=== PATIENT | male | born 1970 ===

== ENCOUNTER 2017-12-18 20:13 | Observation (INO) | payer OTHER ==
[2017-12-18 21:00] VITALS: BMI 35.5
[2017-12-18] MEDS ORDERED: Sodium Chloride 0.9% 1,000 ML IV STA (21:00)
[2017-12-18 21:39] LABS: BASO # 0.03 K/mm3 (0.0-2.0); BASO % 0.4 % (0.0-3.0); EOS # 0.1 (0.0-0.7); EOS % 1.3 % (1.5-5.0); GRAN # 5.82 (1.4-6.5); GRAN % 72.6 % (50.0-68.0); HEMOGLOBIN 14.8 g/dL (14.0-18.0); LYMPH # 1.6 (1.2-3.4); LYMPH % 19.8 % (22.0-35.0); MEAN CELL VOLUME 83.8 fl (80.0-105.0); MEAN CORPUSCULAR HEMOGLOBIN 30.8 pg (25.0-35.0); MEAN CORPUSCULAR HGB CONC 36.7 g/dl (31.0-37.0); MONO # 0.5 (0.1-0.6); MONO % 5.9 % (1.0-6.0); RBC 4.81 10^6/uL (3.5-6.1); RED CELL DISTRIBUTION WIDTH 12.9 % (11.5-14.5)
--- NOTE | 2017-12-18 21:42 | ED PDOC ---
Arrival/HPI - General Chief Complaint: Eye Problem Time Seen by Provider: 12/18/17 20:59 Historian: Patient - History of Present Illness Narrative History of Present Illness (Text): 12/18/17 21:00 47 year old male w/ PMH of HTN and bipolar d/o, recently diagnosed with diabetes 6 months ago and placed on insulin/oral glycemic-control medication, presents to the Emergency department complaining of vision changes. Patient states he discontinued all his diabetes medications because he "got tired of it." Patient has not been checking his insulin or following an appropriate diet. Patient states over the past few days he developed blurry/cloudy vision to both eyes. He adds that he just saw an services tech 1 month ago at [facility] and was given new eyeglasses and despite wearing his glasses his vision is blurry to both eyes. Patient also reports polyuria and polydipsia. Patient states he bought orange juice on sale and has been drinking a lot of it for the past 3 weeks. Patient denies any fever, chills, chest pain, shortness of breath, nausea, vomiting, diarrhea, back pain, neck pain, headache, dizziness, or any other complaints. PMD Veralondra ([place], [place]) Symptom Onset: Gradual Symptom Course: Unchanged Activities at Onset: Light Context: Home Past Medical History - Provider Review Nursing Documentation Reviewed: Yes - Infectious Disease Hx of Infectious Diseases: None - Cardiac Hx Hypertension: Yes - Endocrine/Metabolic Hx Diabetes Mellitus Type 2: Yes - Psychiatric Hx Bipolar Disorder: Yes Hx Depression: No Hx Emotional Abuse: No Hx Physical Abuse: No Hx Substance Use: No - Suicidal Assessment Feels Threatened In Home Enviroment: No Family/Social History - Physician Review Nursing Documentation Reviewed: Yes Family/Social History: Unknown Family HX Smoking Status: Never Smoked Hx Alcohol Use: No Hx Substance Use: No Hx Substance Use Treatment: No Allergies/Home Meds Allergies/Adverse Reactions: Allergies No Known Allergies Allergy (Verified 08/08/11 08:49) Home Medications: Home Meds Medication Instructions Recorded Confirmed risperiDONE [RisperDAL] 3 mg PO DAILY 08/08/11 08/08/11 Review of Systems - Physician Review All systems were reviewed & negative as marked: Yes - Review of Systems Eyes: Vision Changes Neurological: absent: Headache, Dizziness Physical Exam Vital Signs Reviewed: Yes Vital Signs Temp Pulse Resp BP Pulse Ox 12/18/17 21:06 99.0 F 121 H 18 108/67 95 Temperature: Afebrile Blood Pressure: Normal Pulse: Regular Respiratory Rate: Normal Appearance: Positive for: Well-Appearing, Non-Toxic, Comfortable Pain Distress: None Mental Status: Positive for: Alert and Oriented X 3 Finger Stick Blood Glucose: 500 - Systems Exam Head: Present: Atraumatic, Normocephalic Pupils: Present: PERRL Extroacular Muscles: Present: EOMI Conjunctiva: Present: Normal Mouth: Present: Moist Mucous Membranes Neck: Present: Normal Range of Motion Respiratory/Chest: Present: Clear to Auscultation, Good Air Exchange. No: Respiratory Distress, Accessory Muscle Use Cardiovascular: Present: Regular Rate and Rhythm, Normal S1, S2. No: Murmurs Abdomen: No: Tenderness, Distention, Peritoneal Signs Back: Present: Normal Inspection Upper Extremity: Present: Normal Inspection. No: Cyanosis, Edema Lower Extremity: Present: Normal Inspection. No: Edema Neurological: Present: GCS=15, CN II-XII Intact, Speech Normal Skin: Present: Warm, Dry, Normal Color. No: Rashes Psychiatric: Present: Alert, Oriented x 3, Normal Insight, Normal Concentration Medical Decision Making ED Course and Treatment: 12/18/17 21:00 Impression: 47 year old male complaining of vision changes. Plan: -- Labs -- Urinalysis, urine culture -- IV fluids NS bolus 1 L -- Visual Acuity -- Reassess and disposition Progress Notes: FS : > 500 Visual acuity : R eye 20/200 L eye 20/200 (performed with glasses) Labs : wbc 8, hgb 14, Na, 131, Cl 86, CO2 26, Anion gap 19, glucose 628, UA: >1000/ketones +15, VGG: ph 7.35/lactate 1.4. Patient given 10 units IV reg insulin and 8 units SC reg insulin. Repeat FS after IV insulin given was 500. On re-evaluation, patient reports no other symptoms at this time. On exam, patient remains AAOx3, in no acute distress. Diagnostic results d/w the patient in great detail. Diagnosis of hyperglycemia and uncontrolled DM d/w the patient. Based on history, exam and diagnostic results, plan will be for observation. Case d/w medical psychotherapist and Dr. Ramos was notified by medical psychotherapist of observation under the hospitalist service. Patient states he fully agrees with and understands further plan of care. I have given the patient opportunity to ask any additional questions. - Medication Orders Current Medication Orders: Sodium Chloride (Sodium Chloride 0.9%) 1,000 mls @ 1,000 mls/hr IV .Q1H STA Stop: 12/18/17 21:59 Last Admin: 12/18/17 21:23 Dose: 1,000 mls/hr eMAR Start Stop Document 12/18/17 21:23 CNR (Rec: 12/18/17 21:23 CNR [id number]) Intravenous Solution Start Date 12/18/17 Start Time 21:23 End Date 12/18/17 End time 22:23 Total Infusion Time 60 - PA / MARKETING AND PUBLIC RELATIONS MANAGER / Resident Statement MD/DO has reviewed & agrees with the documentation as recorded. - Scribe Statement The provider has reviewed the documentation as recorded by the Alivia Mayer Provider Scribe Attestation: All medical record entries made by the Scribe were at my direction and personally dictated by me. I have reviewed the chart and agree that the record accurately reflects my personal performance of the history, physical exam, medical decision making, and the department course for this patient. I have also personally directed, reviewed, and agree with the discharge instructions and disposition. Disposition/Present on Arrival - Present on Arrival Any Indicators Present on Arrival: Yes History of DVT/PE: No History of Uncontrolled Diabetes: Yes Urinary Catheter: No History of Decub. Ulcer: No History Surgical Site Infection Following: None - Disposition Have Diagnosis and Disposition been Completed?: Yes Diagnosis: Uncontrolled diabetes mellitus, Hyperglycemia Disposition: HOSPITALIZED Disposition Time: 23:15 Patient Plan: Observation Patient Problems: Current Active Problems Problem Status Onset Uncontrolled diabetes mellitus Acute Hyperglycemia Acute Condition: STABLE
[2017-12-18 21:59] LABS: ALB/GLOB RATIO 1.3 (1.1-1.8); ALBUMIN 4.5 g/dL (3.0-4.8); ALT/SGPT 39 U/L (7-56); AST/SGOT 64 U/L (17-59); BLOOD UREA NITROGEN 17 mg/dL (7-21); CALCIUM 9.1 mg/dL (8.4-10.5); GFR NON-AFRICAN AMERICAN 59
[2017-12-18] MEDS ORDERED: Insulin Regular 1 UNITS/0.01 ML ML IV STA (22:16)
[2017-12-18] MEDS ORDERED: Insulin Regular 1 UNITS/0.01 ML ML SC STA (22:18)
[2017-12-18 22:46] LABS: URINE BILIRUBIN NEGATIVE (NEGATIVE); URINE BLOOD NEGATIVE (NEGATIVE); URINE GLUCOSE (UA) >=1000 mg/dL (NEGATIVE); URINE LEUKOCYTE ESTERASE NEGATIVE Leu/uL (NEGATIVE); URINE PROTEIN NEGATIVE mg/dL (<30 mg/dL); URINE UROBILINOGEN 0.2 E.U./dL (<1 E.U./dL)
[2017-12-18 22:50] LABS: URINE COLOR LIGHT YELLOW (YELLOW)
[2017-12-18 22:51] LABS: URINE APPEARANCE CLEAR (CLEAR)
[2017-12-18 22:52] LABS: VENOUS BLOOD GAS BASE EXCESS 2.9 mmol/L (0.0-2.0); VENOUS BLOOD GAS PO2 32 mm/Hg (30-55); VENOUS BLOOD PH 7.35 (7.32-7.43)
[2017-12-19] MEDS ORDERED: Potassium Chloride 20 mEq ER Tab PO STA (00:10)
[2017-12-19] MEDS ORDERED: Dextrose 50% SYRINGE Inj (50 ml) IV PRN (00:10)
[2017-12-19] MEDS ORDERED: Insulin Detemir 100 units/ml Vial (Levemir) SC SCH ×2 (00:15→22:00)
[2017-12-19] MEDS ORDERED: Insulin Lispro (humaLOG) MEDIUM Coverage SC SCH (00:15)
--- NOTE | 2017-12-19 00:15 | CP.PCM.HP ---
Addendum entered and electronically signed by Anuj Singh DO 12/19/17 06:18: Corrected Assessment: 47M w/ a PMH of Bipolar, HTN, Recently DM HTN 6mo prior to admission, presented to [facility] ED on 12/19 w/ CC of blurry vision x3 days; patient found to be hyperglycemic upon ED evaluation; will be worked up as DKA Original Note: History of Present Illness - History of Present Illness History of Present Illness: Anuj Singh DO PGY1 - Internal Medicine Picker/Puller - Medicine H&P CC: Blurry Vision 47M w/ a PMH of Bipolar, HTN, Recently DM HTN 6mo prior to admission, presented to [facility] ED on 12/19 w/ CC of blurry vision x3 days Patient reports gradual worsening of blury vision in both eyes; denies any loss of visual field, color change, light sensitivity, floaters/ spotters Reports that he stopped taking his DM Rx (insulin and oral agent) because he was "frustrated with taking it". He says he was recently diagnosed 6mo by his PMD (Mathew Randolph) and was trying multiple different injectable Rx. He describes his most current regimen as a once nightly injection and a oral agent; unsure of names + doses. He denies any issue w/ purchasing or accessibility. He did not report how long he has been off of his anti hyperglycemic rx; however did report associated polydypsia, polyuria. He does report he is compliant w/ his other rx. Upon ROS denies suicidal ideation, homicidal ideation, auditory/visual hallucination, manic episodes or depressed mood. Subsequently denies abd pain, n/v/d/c, fevers/chills, dysuria. Remainder of 12 system ROS is negative at this time. PMD: Melia Randolph [place]- last appt 6mo ago PMH: As above PSH: BL Feet orthopedic surgery 03/29 accident - 1991 Allergies: NKDA Social: Denies Home Rx: Ripserdal 3mg QD; Losartan - dose unknown Present on Admission - Present on Admission Any Indicators Present on Admission: No Review of Systems - Review of Systems All systems: reviewed and no additional remarkable complaints except Review of Systems: As per HPI Past Patient History - Infectious Disease Hx of Infectious Diseases: None - Past Social History Smoking Status: Never Smoked - CARDIAC Hx Hypertension: Yes - ENDOCRINE/METABOLIC Hx Diabetes Mellitus Type 2: Yes - PSYCHIATRIC Hx Bipolar Disorder: Yes Hx Depression: No Hx Emotional Abuse: No Hx Physical Abuse: No Hx Substance Use: No Meds Allergies/Adverse Reactions: Allergies Allergy/AdvReac Type Severity Reaction Status Date / Time No Known Allergies Allergy Verified 08/08/11 08:49 Physical Exam - Constitutional Appears: Well, Non-toxic, No Acute Distress - Head Exam Head Exam: ATRAUMATIC, NORMAL INSPECTION, NORMOCEPHALIC - Eye Exam Eye Exam: EOMI, Normal appearance, PERRL. absent: Scleral icterus Additional comments: Visual kent intact EOMI intact - ENT Exam ENT Exam: Mucous Membranes Moist, Normal Exam - Respiratory Exam Respiratory Exam: Clear to Auscultation Bilateral, NORMAL BREATHING PATTERN. absent: Rales, Rhonchi, Wheezes - Cardiovascular Exam Cardiovascular Exam: RRR, +S1, +S2 - GI/Abdominal Exam GI & Abdominal Exam: Normal Bowel Sounds, Soft. absent: Tenderness - Back Exam Back exam: absent: CVA tenderness (L), CVA tenderness (R) - Neurological Exam Neurological exam: CN II-XII Intact, Oriented x3 - Psychiatric Exam Psychiatric exam: Normal Affect, Normal Mood Additional comments: Negative for: depressed, anxious, suicidal - Skin Skin Exam: Dry, Intact, Warm Results - Vital Signs Recent Vital Signs: Last Vital Signs Temp 99.0 F 12/18/17 21:06 Pulse 121 H 12/18/17 21:06 Resp 18 12/18/17 21:06 BP 108/67 12/18/17 21:06 Pulse Ox 95 12/18/17 21:06 - Labs Result Diagrams: 12/18/17 21:20 12/19/17 04:00 Labs: Laboratory Results - last 24 hr 12/18/17 12/18/17 12/18/17 21:18 21:20 21:20 WBC 8.0 RBC 4.81 Hgb 14.8 Hct 40.3 L MCV 83.8 MCH 30.8 MCHC 36.7 RDW 12.9 Plt Count 233 MPV 12.0 H Gran % 72.6 H Lymph % (Auto) 19.8 L Wright % (Auto) 5.9 Eos % (Auto) 1.3 L Baso % (Auto) 0.4 Gran # 5.82 Lymph # (Auto) 1.6 Wright # (Auto) 0.5 Eos # (Auto) 0.1 Baso # (Auto) 0.03 pO2 VBG pH VBG pCO2 VBG HCO3 VBG Total CO2 VBG O2 Sat (Calc) VBG Base Excess VBG Potassium Glucose Lactate FiO2 Sodium 131 L Potassium 3.7 Chloride 86 L Carbon Dioxide 26 Anion Gap 22 H BUN 17 Creatinine 1.3 Est GFR ( Amer) > 60 Est GFR (Non-Af Amer) 59 POC Glucose (mg/dL) > 500 H* Random Glucose 628 H* Calcium 9.1 Magnesium 1.8 Total Bilirubin 1.0 AST 64 H ALT 39 Alkaline Phosphatase 90 Total Protein 8.0 Albumin 4.5 Globulin 3.4 Albumin/Globulin Ratio 1.3 Venous Blood Potassium Urine Color Urine Appearance Urine pH Ur Specific [place] Urine Protein Urine Glucose (UA) Urine Ketones Urine Blood Urine Nitrate Urine Bilirubin Urine Urobilinogen Ur Leukocyte Esterase 12/18/17 12/18/17 22:36 22:45 WBC RBC Hgb Hct MCV MCH MCHC RDW Plt Count MPV Gran % Lymph % (Auto) Wright % (Auto) Eos % (Auto) Baso % (Auto) Gran # Lymph # (Auto) Wright # (Auto) Eos # (Auto) Baso # (Auto) pO2 32 VBG pH 7.35 VBG pCO2 54.0 VBG HCO3 29.8 H VBG Total CO2 31.5 H VBG O2 Sat (Calc) 61.4 VBG Base Excess 2.9 H VBG Potassium 3.4 L Glucose 565 H* Lactate 1.4 FiO2 21.0 Sodium 135.0 Potassium Chloride 93.0 L Carbon Dioxide Anion Gap BUN Creatinine Est GFR ( Amer) Est GFR (Non-Af Amer) POC Glucose (mg/dL) Random Glucose Calcium Magnesium Total Bilirubin AST ALT Alkaline Phosphatase Total Protein Albumin Globulin Albumin/Globulin Ratio Venous Blood Potassium 3.4 L Urine Color Light yellow Urine Appearance Clear Urine pH 6.0 Ur Specific [place] <= 1.005 Urine Protein Negative Urine Glucose (UA) >=1000 Urine Ketones 15 H Urine Blood Negative Urine Nitrate Negative Urine Bilirubin Negative Urine Urobilinogen 0.2 Ur Leukocyte Esterase Negative Assessment & Plan - Assessment and Plan (Free Text) Assessment: 47M w/ a PMH of Bipolar, HTN, Recently DM HTN 6mo prior to admission, presented to [facility] ED on 12/19 w/ CC of blurry vision x3 days; patient found to be hyperglycemic upon ED evaluation w/o any signs of HHS or PLAN DKA 2/2 Non compliance: Non acidotic; Glucose 628; AG 19 AG post 18u insulin bolus and IVF: 18 UA: Ketouria + Glucosuria Start insulin drip per DKA Algortihm CLD; IVF NS 100cc/hr Accucheck Q1H BMP Q4H Hypokalemia Repleted w/ 60meq PO Continue monitoring; Replete as necesary Blurry vision 2/2 hyperglycemia -Will correct hyperglycemia as above -Ophthalmology consulted, appreciate reccs Hx Hypertension -C/w Home Losartan 25QD Hx Bipolar Disorder -C/w Risperdal at this time -Risperdal has known hyperglycemic effect; will consult psych for further reccs -Psych consulted, appreciate reccs PPX DVT:SCD GI: Famotidine 20 PO DISPO: ICU for DKA mgmt w/ insulin drip Upon discharge pt w/ f/u w/ PMD Mathew Wellington Patient was seen, evaluated, and discussed w/ attending Dr. Carlos Singh DO PGY1 Internal Medicine Picker/Puller [facility] Internal Medicine Residency - Date & Time Date: 12/19/17 Time: 05:45
[2017-12-19] MEDS: Sodium Chloride 0.9% 1,000 ML IV SCH ×2 (00:41→06:40)
[2017-12-19] MEDS ORDERED: Insulin Regular 100 UNITS in Sodium Chloride 0.9% 99 ML IV PRN (04:39)
[2017-12-19 04:40] LABS: FREE T4 1.39 ng/dL (0.78-2.19)
[2017-12-19 04:50] LABS: ALB/GLOB RATIO 1.4 (1.1-1.8); ALBUMIN 4.2 g/dL (3.0-4.8); ALT/SGPT 32 U/L (7-56); AST/SGOT 50 U/L (17-59); BLOOD UREA NITROGEN 18 mg/dL (7-21); GFR NON-AFRICAN AMERICAN > 60; HDL CHOLESTEROL 22 mg/dL (29-60); LDL CHOLESTEROL < 30 mg/dL (0-129)
[2017-12-19] MEDS ORDERED: Potassium Chloride 20 mEq ER Tab PO ONE (05:02)
[2017-12-19 05:58] LABS: BASO # 0.05 K/mm3 (0.0-2.0); BASO % 0.6 % (0.0-3.0); EOS # 0.2 (0.0-0.7); EOS % 1.9 % (1.5-5.0); GRAN # 5.1 (1.4-6.5); GRAN % 57.8 % (50.0-68.0); HEMOGLOBIN 13.8 g/dL (14.0-18.0); LYMPH # 2.9 (1.2-3.4); LYMPH % 32.7 % (22.0-35.0); MEAN CELL VOLUME 83.3 fl (80.0-105.0); MEAN CORPUSCULAR HEMOGLOBIN 30.7 pg (25.0-35.0); MEAN CORPUSCULAR HGB CONC 36.9 g/dl (31.0-37.0); MEAN PLATELET VOLUME 11.4 fl (7.0-11.0); MONO # 0.6 (0.1-0.6); RBC 4.49 10^6/uL (3.5-6.1); WHITE BLOOD COUNT 8.8 10^3/ul (4.5-11.0)
--- NOTE | 2017-12-19 06:13 | CP.PCM.CON ---
History of Present Illness - History of Present Illness History of Present Illness: Anuj Singh DO PGy1 - Internal Medicine Stockroom Clerk - ICU Consult Note CC: Blurry Vision 47M w/ a PMH of Bipolar, HTN, Recently DM HTN 6mo prior to admission, presented to [facility] ED on 12/19 w/ CC of blurry vision x3 days Patient reports gradual worsening of blury vision in both eyes; denies any loss of visual field, color change, light sensitivity, floaters/ spotters Reports that he stopped taking his DM Rx (insulin and oral agent) because he was "frustrated with taking it". He says he was recently diagnosed 6mo by his PMD (Mathew Randolph) and was trying multiple different injectable Rx. He describes his most current regimen as a once nightly injection and a oral agent; unsure of names + doses. He denies any issue w/ purchasing or accessibility. He did not report how long he has been off of his anti hyperglycemic rx; however did report associated polydypsia, polyuria. He does report he is compliant w/ his other rx. Upon ROS denies suicidal ideation, homicidal ideation, auditory/visual hallucination, manic episodes or depressed mood. Subsequently denies abd pain, n/v/d/c, fevers/chills, dysuria. Remainder of 12 system ROS is negative at this time. PMD: Melia Randolph [place]- last appt 6mo ago PMH: As above PSH: Feet orthopedic surgery 03/29 accident - 1991 Allergies: NKDA Social: Denies Home Rx: Ripserdal 3mg QD; Losartan - dose unknown Review of Systems - Review of Systems All systems: reviewed and no additional remarkable complaints except Review of Systems: PER HPI Past Patient History - Infectious Disease Hx of Infectious Diseases: None - Past Social History Smoking Status: Never Smoked - CARDIAC Hx Hypertension: Yes - PULMONARY Hx Respiratory Disorders: No - NEUROLOGICAL Hx Neurological Disorder: No - HEENT Hx HEENT Problems: No - RENAL Hx Chronic Kidney Disease: No - ENDOCRINE/METABOLIC Hx Diabetes Mellitus Type 2: Yes - HEMATOLOGICAL/ONCOLOGICAL Hx Blood Disorders: No - INTEGUMENTARY Hx Dermatological Problems: No - MUSCULOSKELETAL/RHEUMATOLOGICAL Hx Musculoskeletal Disorders: No Hx Falls: No - GASTROINTESTINAL Hx Gastrointestinal Disorders: No - GENITOURINARY/GYNECOLOGICAL Hx Genitourinary Disorders: No - PSYCHIATRIC Hx Bipolar Disorder: Yes Hx Depression: No Hx Emotional Abuse: No Hx Physical Abuse: No Hx Substance Use: No - SURGICAL HISTORY Hx Surgeries: No Meds Allergies/Adverse Reactions: Allergies Allergy/AdvReac Type Severity Reaction Status Date / Time No Known Allergies Allergy Verified 08/08/11 08:49 - Medications Medications: Current Medications Atorvastatin Calcium (Lipitor) 40 mg PO DIN EDWARD Dextrose (Dextrose 50% Inj) 0 ml IV STAT PRN; Protocol PRN Reason: Hypoglycemia Protocol Famotidine (Pepcid) 20 mg PO HS EDWARD Heparin Sodium (Porcine) (Heparin) 5,000 units SC Q12 EDWARD; Protocol Sodium Chloride (Sodium Chloride 0.9%) 1,000 mls @ 100 mls/hr IV .Q10H EDWARD Last Admin: 12/19/17 00:41 Dose: 100 mls/hr Dextrose (Dextrose 5% In Water 1000 Ml) 1,000 mls @ 0 mls/hr IV .Q0M PRN; Protocol PRN Reason: Hypoglycemia Protocol Insulin Human Regular 100 (units/ Sodium Chloride) 100 mls @ 4 mls/hr IV .Q24H PRN; Protocol PRN Reason: TITRATE PER MD ORDER Potassium Chloride (Potassium Chloride 20 Meq/100 Ml) 20 meq in 100 mls @ 50 mls/hr IVPB ONCE ONE Stop: 12/19/17 07:01 Losartan Potassium (Cozaar) 25 mg PO DAILY EDWARD Risperidone (Risperdal Tab) 3 mg PO DAILY EDWARD; Protocol Physical Exam - Constitutional Appears: Well, Non-toxic, No Acute Distress - Head Exam Head Exam: ATRAUMATIC, NORMAL INSPECTION, NORMOCEPHALIC - Eye Exam Eye Exam: EOMI, Normal appearance, PERRL. absent: Scleral icterus - ENT Exam ENT Exam: Mucous Membranes Moist, Normal Exam - Respiratory Exam Respiratory Exam: Clear to Auscultation Bilateral, NORMAL BREATHING PATTERN - Cardiovascular Exam Cardiovascular Exam: REGULAR RHYTHM, RRR, +S1, +S2 - GI/Abdominal Exam GI & Abdominal Exam: Normal Bowel Sounds, Soft. absent: Tenderness - Extremities Exam Extremities exam: Positive for: pedal pulses present. Negative for: pedal edema - Back Exam Back exam: absent: CVA tenderness (L), CVA tenderness (R) - Neurological Exam Neurological exam: Alert, CN II-XII Intact, Oriented x3 - Psychiatric Exam Psychiatric exam: Normal Affect, Normal Mood Additional comments: Negative for: depressed, anxious, suicidal - Skin Skin Exam: Dry, Intact, Normal Color, Warm Results - Vital Signs Recent Vital Signs: Last Vital Signs Temp 99.0 F 12/19/17 01:43 Pulse 104 H 12/19/17 01:43 Resp 18 12/19/17 01:43 BP 121/81 12/19/17 01:43 Pulse Ox 99 12/19/17 01:43 - Labs Result Diagrams: 12/19/17 04:00 12/19/17 04:00 Labs: Laboratory Results - last 24 hr 12/18/17 12/18/17 12/18/17 21:18 21:20 21:20 WBC 8.0 RBC 4.81 Hgb 14.8 Hct 40.3 L MCV 83.8 MCH 30.8 MCHC 36.7 RDW 12.9 Plt Count 233 MPV 12.0 H Gran % 72.6 H Lymph % (Auto) 19.8 L [place] % (Auto) 5.9 Eos % (Auto) 1.3 L Baso % (Auto) 0.4 Gran # 5.82 Lymph # (Auto) 1.6 Ferry # (Auto) 0.5 Eos # (Auto) 0.1 Baso # (Auto) 0.03 pO2 VBG pH VBG pCO2 VBG HCO3 VBG Total CO2 VBG O2 Sat (Calc) VBG Base Excess VBG Potassium Glucose Lactate FiO2 Sodium 131 L Potassium 3.7 Chloride 86 L Carbon Dioxide 26 Anion Gap 22 H BUN 17 Creatinine 1.3 Est GFR ( Amer) > 60 Est GFR (Non-Af Amer) 59 POC Glucose (mg/dL) > 500 H* Random Glucose 628 H* Calcium 9.1 Phosphorus Magnesium 1.8 Total Bilirubin 1.0 AST 64 H ALT 39 Alkaline Phosphatase 90 Total Protein 8.0 Albumin 4.5 Globulin 3.4 Albumin/Globulin Ratio 1.3 Triglycerides Cholesterol LDL Cholesterol Direct HDL Cholesterol Free T4 TSH 3rd Generation Venous Blood Potassium Urine Color Urine Appearance Urine pH Ur Specific [place] Urine Protein Urine Glucose (UA) Urine Ketones Urine Blood Urine Nitrate Urine Bilirubin Urine Urobilinogen Ur Leukocyte Esterase 12/18/17 12/18/17 12/19/17 22:36 22:45 04:00 WBC 8.8 RBC 4.49 Hgb 13.8 L Hct 37.4 L MCV 83.3 MCH 30.7 MCHC 36.9 RDW 13.0 Plt Count 228 MPV 11.4 H Gran % 57.8 Lymph % (Auto) 32.7 [place]erry % (Auto) 7.0 H Eos % (Auto) 1.9 Baso % (Auto) 0.6 Gran # 5.10 Lymph # (Auto) 2.9 [place]erry # (Auto) 0.6 Eos # (Auto) 0.2 Baso # (Auto) 0.05 pO2 32 VBG pH 7.35 VBG pCO2 54.0 VBG HCO3 29.8 H VBG Total CO2 31.5 H VBG O2 Sat (Calc) 61.4 VBG Base Excess 2.9 H VBG Potassium 3.4 L Glucose 565 H* Lactate 1.4 FiO2 21.0 Sodium 135.0 Potassium Chloride 93.0 L Carbon Dioxide Anion Gap BUN Creatinine Est GFR ( Amer) Est GFR (Non-Af Amer) POC Glucose (mg/dL) Random Glucose Calcium Phosphorus Magnesium Total Bilirubin AST ALT Alkaline Phosphatase Total Protein Albumin Globulin Albumin/Globulin Ratio Triglycerides Cholesterol LDL Cholesterol Direct HDL Cholesterol Free T4 TSH 3rd Generation Venous Blood Potassium 3.4 L Urine Color Light yellow Urine Appearance Clear Urine pH 6.0 Ur Specific [place] <= 1.005 Urine Protein Negative Urine Glucose (UA) >=1000 Urine Ketones 15 H Urine Blood Negative Urine Nitrate Negative Urine Bilirubin Negative Urine Urobilinogen 0.2 Ur Leukocyte Esterase Negative 12/19/17 12/19/17 04:00 04:00 WBC RBC Hgb Hct MCV MCH MCHC RDW Plt Count MPV Gran % Lymph % (Auto) [place] % (Auto) Eos % (Auto) Baso % (Auto) Gran # Lymph # (Auto) [place] # (Auto) Eos # (Auto) Baso # (Auto) pO2 VBG pH VBG pCO2 VBG HCO3 VBG Total CO2 VBG O2 Sat (Calc) VBG Base Excess VBG Potassium Glucose Lactate FiO2 Sodium 133 Potassium 3.3 L Chloride 94 L Carbon Dioxide 25 Anion Gap 17 BUN 18 Creatinine 0.9 Est GFR ( Amer) > 60 Est GFR (Non-Af Amer) > 60 POC Glucose (mg/dL) Random Glucose 322 H* D Calcium 9.0 Phosphorus 3.0 Magnesium 2.0 Total Bilirubin 0.6 AST 50 ALT 32 Alkaline Phosphatase 80 Total Protein 7.2 Albumin 4.2 Globulin 3.0 Albumin/Globulin Ratio 1.4 Triglycerides 2275 H Cholesterol 225 H LDL Cholesterol Direct < 30 HDL Cholesterol 22 L Free T4 1.39 TSH 3rd Generation 1.70 Venous Blood Potassium Urine Color Urine Appearance Urine pH Ur Specific [place] Urine Protein Urine Glucose (UA) Urine Ketones Urine Blood Urine Nitrate Urine Bilirubin Urine Urobilinogen Ur Leukocyte Esterase Assessment & Plan - Assessment and Plan (Free Text) Assessment: 47M w/ a PMH of Bipolar, HTN, Recently DM HTN 6mo prior to admission, presented to [facility] ED on 12/19 w/ CC of blurry vision x3 days; patient found to be hype rglycemic upon ED evaluation admitted to ICU for management of DKA requiring insulin drip. Endo: Non acidotic; Glucose 628; AG 19 AG post 18u insulin bolus and IVF: 18 UA: Ketouria + Glucosuria Start insulin drip per DKA Algortihm CLD; IVF NS 100cc/hr Accucheck Q1H BMP Q4H Will transition off of drip to long acting once gap closes Neuro: Blurry vision is most likely 2/2 hyperglycemia Maintain normothermia AAO3 Reorient as necessary no FND moving extremities past midline ophtalmology consulted, appreciate reccs Cardio: RRR Distal pulses 2+ Hx HTN ; C/w Losartan 25 QD Maintain Map >65 Pulm: CTABL Maintain O2 >95% GI: Tolerating diet well no GI complaints IVF NS @ 100cc/hr Can resume full diet once gap closes Nephro/Urology: Hypokalemic / Hyponatremic 60meq K+ given Recheck / Replete as necessary BMP Q4 BUN/Cr 8/0.9 ID: Afebrile No leukocytosis Monitor for S/s infx Psych: Hx Bipolar Disorder -C/w Risperdal at this time -Risperdal has known hyperglycemic effect; will consult psych for further reccs -Psych consulted, appreciate reccs PPX DVT:SCD GI: Famotidine 20 PO DISPO: ICU for DKA mgmt w/ insulin drip Upon discharge pt w/ f/u w/ PMD Mathew Wellington Patient was seen, evaluated, and discussed w/ attending Dr. Carlos Singh DO PGY1 Internal Medicine Stockroom Clerk - Date & Time Date: 12/19/17 Time: 06:31
[2017-12-19 08:26] LABS: BLOOD UREA NITROGEN 15 mg/dL (7-21); CALCIUM 8.8 mg/dL (8.4-10.5); GFR NON-AFRICAN AMERICAN > 60
--- NOTE | 2017-12-19 12:13 | CP.CCUPN ---
<Josseline Velasco - Last Filed: 12/19/17 13:24> CCU Subjective - Physician Review Subjective (Free Text): CRITICAL CARE PROGRESS NOTE FOR DR. RAMOS Pt seen and examined at bedside this am. No acute nursing events overnight. No acute complaints. Pt reports his visual symptoms have been resolving. He is not in respiratory distress. 12 point ROS is negative CCU Objective - Vital Signs / Intake & Output Vital Signs (Last 4 hours): Vital Signs Pulse Resp BP Pulse Ox 12/19/17 11:20 94 H 44 H 93 L 12/19/17 11:10 88 28 H 92 L 12/19/17 11:00 86 23 149/96 H 90 L 12/19/17 10:54 86 138/88 12/19/17 10:50 93 H 25 H 92 L 12/19/17 10:40 99 H 23 95 12/19/17 10:30 97 H 94 L 12/19/17 10:20 96 H 22 93 L 12/19/17 10:10 95 H 94 L 12/19/17 10:01 94 H 32 H 138/88 93 L 12/19/17 10:00 95 H 27 H 87 L 12/19/17 09:50 98 H 30 H 94 L 12/19/17 09:40 98 H 19 94 L 12/19/17 09:30 95 H 33 H 93 L 12/19/17 09:20 95 H 30 H 95 12/19/17 09:10 97 H 96 12/19/17 09:01 96 H 34 H 151/90 H 89 L 12/19/17 09:00 98 H 33 H 92 L 12/19/17 08:50 91 H 21 93 L 12/19/17 08:40 95 H 16 93 L 12/19/17 08:30 98 H 26 H 93 L 12/19/17 08:20 101 H 21 93 L Intake and Output (Last 8hrs): Intake & Output 12/18/17 12/19/17 12/19/17 22:59 06:59 14:59 Intake Total 250 20 Balance 250 20 Weight 220 lb 220 lb Intake: IV 20 Oral 250 - Physical Exam Head: Positive for: Atraumatic, Normocephalic Pupils: Positive for: PERRL Extroacular Muscles: Positive for: EOMI Conjunctiva: Positive for: Normal Mouth: Positive for: Moist Mucous Membranes Neck: Positive for: Normal Range of Motion Respiratory/Chest: Positive for: Clear to Auscultation, Good Air Exchange. Negative for: Respiratory Distress, Accessory Muscle Use Cardiovascular: Positive for: Regular Rate and Rhythm, Normal S1, S2. Negative for: Murmurs Abdomen: Negative for: Tenderness, Distention, Peritoneal Signs Back: Positive for: Normal Inspection Upper Extremity: Positive for: Normal Inspection. Negative for: Cyanosis, Edema Lower Extremity: Positive for: Normal Inspection. Negative for: Edema Neurological: Positive for: GCS=15, CN II-XII Intact, Speech Normal Skin: Positive for: Warm, Dry, Normal Color. Negative for: Rashes Psychiatric: Positive for: Alert, Oriented x 3, Normal Insight, Normal Concentration - Medications Active Medications: Active Medications Generic Name Dose Route Start Last Admin Trade Name Freq PRN Reason Stop Dose Admin Atorvastatin Calcium 40 mg 12/19/17 17:00 Lipitor PO DIN EDWARD Dextrose 0 ml 12/19/17 00:10 Dextrose 50% Inj IV STAT PRN Hypoglycemia Protocol Protocol Famotidine 20 mg 12/19/17 22:00 Pepcid PO HS EDWARD Heparin Sodium (Porcine) 5,000 units 12/19/17 10:00 12/19/17 10:53 Heparin SC 5,000 units Q12 EDWARD Administration Protocol Dextrose 1,000 mls @ 0 mls/hr 12/19/17 00:10 Dextrose 5% In Water 1000 Ml IV .Q0M PRN Hypoglycemia Protocol Protocol Per Protocol Insulin Human Regular 100 100 mls @ 4 mls/hr 12/19/17 04:39 12/19/17 11:22 units/ Sodium Chloride IV 2 units/hr .Q24H PRN 2 mls/hr TITRATE PER MD ORDER Titration Protocol 4 UNITS/HR Potassium Chloride 40 meq/ 1,020 mls @ 125 mls/hr 12/19/17 07:36 12/19/17 11:23 Sodium Chloride IV 125 mls/hr .Q8H10M EDWARD Administration Losartan Potassium 25 mg 12/19/17 10:00 12/19/17 10:54 Cozaar PO 25 mg DAILY EDWARD Administration Risperidone 3 mg 12/19/17 22:00 Risperdal Tab PO HS EDWARD Protocol - Patient Studies Lab Studies: Lab Studies 10/25/18 10/25/18 10/25/18 Range/Units 11:58 11:13 10:25 WBC (4.5-11.0) 10^3/ul RBC (3.5-6.1) 10^6/uL Hgb (14.0-18.0) g/dL Hct (42.0-52.0) % MCV (80.0-105.0) fl MCH (25.0-35.0) pg MCHC (31.0-37.0) g/dl RDW (11.5-14.5) % Plt Count (120.0-450.0) 10^3/uL MPV (7.0-11.0) fl Gran % (50.0-68.0) % Lymph % (Auto) (22.0-35.0) % [place] % (Auto) (1.0-6.0) % Eos % (Auto) (1.5-5.0) % Baso % (Auto) (0.0-3.0) % Gran # (1.4-6.5) Lymph # (Auto) (1.2-3.4) [place] # (Auto) (0.1-0.6) Eos # (Auto) (0.0-0.7) Baso # (Auto) (0.0-2.0) K/mm3 pO2 (30-55) mm/Hg VBG pH (7.32-7.43) VBG pCO2 (40-60) VBG HCO3 (21-28) mmol/l VBG Total CO2 (22-28) mmol.L VBG O2 Sat (Calc) (40-65) % VBG Base Excess (0.0-2.0) mmol/L VBG Potassium (3.6-5.2) mmol/L Glucose (75-110) mg/dl Lactate (0.7-2.1) mmol/L FiO2 % Sodium (132-148) mmol/L Potassium (3.6-5.0) mmol/L Chloride (98-107) mmol/L Carbon Dioxide (21-33) mmol/L Anion Gap (10-20) BUN (7-21) mg/dL Creatinine (0.8-1.5) mg/dl Est GFR ( Amer) Est GFR (Non-Af Amer) POC Glucose (mg/dL) 196 H 239 H 250 H (65-110) mg/dL Random Glucose (70-110) mg/dL Hemoglobin A1c (4.2-6.5) % Calcium (8.4-10.5) mg/dL Phosphorus (2.5-4.5) mg/dL Magnesium (1.7-2.2) mg/dL Total Bilirubin (0.2-1.3) mg/dL AST (17-59) U/L ALT (7-56) U/L Alkaline Phosphatase (38-126) U/L Total Protein (5.8-8.3) g/dL Albumin (3.0-4.8) g/dL Globulin gm/dL Albumin/Globulin Ratio (1.1-1.8) Triglycerides (35-160) mg/dL Cholesterol (130-200) mg/dL LDL Cholesterol Direct (0-129) mg/dL HDL Cholesterol (29-60) mg/dL Free T4 (0.78-2.19) ng/dL TSH 3rd Generation (0.46-4.68) mIU/mL Venous Blood Potassium (3.6-5.2) mmol/L Urine Color (YELLOW) Urine Appearance (CLEAR) Urine pH (4.7-8.0) Ur Specific [place] (1.005-1.035) Urine Protein (<30 mg/dL) mg/dL Urine Glucose (UA) (NEGATIVE) mg/dL Urine Ketones (NEGATIVE) mg/dL Urine Blood (NEGATIVE) Urine Nitrate (NEGATIVE) Urine Bilirubin (NEGATIVE) Urine Urobilinogen (<1 E.U./dL) E.U./dL Ur Leukocyte Esterase (NEGATIVE) Avni/uL B-Hydroxybutyrate (0.02-0.27) mM 12/19/17 12/19/17 12/19/17 Range/Units 09:05 08:08 08:00 WBC (4.5-11.0) 10^3/ul RBC (3.5-6.1) 10^6/uL Hgb (14.0-18.0) g/dL Hct (42.0-52.0) % MCV (80.0-105.0) fl MCH (25.0-35.0) pg MCHC (31.0-37.0) g/dl RDW (11.5-14.5) % Plt Count (120.0-450.0) 10^3/uL MPV (7.0-11.0) fl Gran % (50.0-68.0) % Lymph % (Auto) (22.0-35.0) % [place] % (Auto) (1.0-6.0) % Eos % (Auto) (1.5-5.0) % Baso % (Auto) (0.0-3.0) % Gran # (1.4-6.5) Lymph # (Auto) (1.2-3.4) [place] # (Auto) (0.1-0.6) Eos # (Auto) (0.0-0.7) Baso # (Auto) (0.0-2.0) K/mm3 pO2 (30-55) mm/Hg VBG pH (7.32-7.43) VBG pCO2 (40-60) VBG HCO3 (21-28) mmol/l VBG Total CO2 (22-28) mmol.L VBG O2 Sat (Calc) (40-65) % VBG Base Excess (0.0-2.0) mmol/L VBG Potassium (3.6-5.2) mmol/L Glucose (75-110) mg/dl Lactate (0.7-2.1) mmol/L FiO2 % Sodium 134 (132-148) mmol/L Potassium 3.4 L (3.6-5.0) mmol/L Chloride 98 (98-107) mmol/L Carbon Dioxide 22 (21-33) mmol/L Anion Gap 17 (10-20) BUN 15 (7-21) mg/dL Creatinine 0.7 L (0.8-1.5) mg/dl Est GFR ( Amer) > 60 Est GFR (Non-Af Amer) > 60 POC Glucose (mg/dL) 256 H 262 H (65-110) mg/dL Random Glucose 266 H (70-110) mg/dL Hemoglobin A1c (4.2-6.5) % Calcium 8.8 (8.4-10.5) mg/dL Phosphorus (2.5-4.5) mg/dL Magnesium (1.7-2.2) mg/dL Total Bilirubin (0.2-1.3) mg/dL AST (17-59) U/L ALT (7-56) U/L Alkaline Phosphatase (38-126) U/L Total Protein (5.8-8.3) g/dL Albumin (3.0-4.8) g/dL Globulin gm/dL Albumin/Globulin Ratio (1.1-1.8) Triglycerides (35-160) mg/dL Cholesterol (130-200) mg/dL LDL Cholesterol Direct (0-129) mg/dL HDL Cholesterol (29-60) mg/dL Free T4 (0.78-2.19) ng/dL TSH 3rd Generation (0.46-4.68) mIU/mL Venous Blood Potassium (3.6-5.2) mmol/L Urine Color (YELLOW) Urine Appearance (CLEAR) Urine pH (4.7-8.0) Ur Specific [place] (1.005-1.035) Urine Protein (<30 mg/dL) mg/dL Urine Glucose (UA) (NEGATIVE) mg/dL Urine Ketones (NEGATIVE) mg/dL Urine Blood (NEGATIVE) Urine Nitrate (NEGATIVE) Urine Bilirubin (NEGATIVE) Urine Urobilinogen (<1 E.U./dL) E.U./dL Ur Leukocyte Esterase (NEGATIVE) Avni/uL B-Hydroxybutyrate (0.02-0.27) mM 12/19/17 12/19/17 12/19/17 Range/Units 06:11 04:00 04:00 WBC (4.5-11.0) 10^3/ul RBC (3.5-6.1) 10^6/uL Hgb (14.0-18.0) g/dL Hct (42.0-52.0) % MCV (80.0-105.0) fl MCH (25.0-35.0) pg MCHC (31.0-37.0) g/dl RDW (11.5-14.5) % Plt Count (120.0-450.0) 10^3/uL MPV (7.0-11.0) fl Gran % (50.0-68.0) % Lymph % (Auto) (22.0-35.0) % [place] % (Auto) (1.0-6.0) % Eos % (Auto) (1.5-5.0) % Baso % (Auto) (0.0-3.0) % Gran # (1.4-6.5) Lymph # (Auto) (1.2-3.4) [place] # (Auto) (0.1-0.6) Eos # (Auto) (0.0-0.7) Baso # (Auto) (0.0-2.0) K/mm3 pO2 (30-55) mm/Hg VBG pH (7.32-7.43) VBG pCO2 (40-60) VBG HCO3 (21-28) mmol/l VBG Total CO2 (22-28) mmol.L VBG O2 Sat (Calc) (40-65) % VBG Base Excess (0.0-2.0) mmol/L VBG Potassium (3.6-5.2) mmol/L Glucose (75-110) mg/dl Lactate (0.7-2.1) mmol/L FiO2 % Sodium (132-148) mmol/L Potassium (3.6-5.0) mmol/L Chloride (98-107) mmol/L Carbon Dioxide (21-33) mmol/L Anion Gap (10-20) BUN (7-21) mg/dL Creatinine (0.8-1.5) mg/dl Est GFR ( Amer) Est GFR (Non-Af Amer) POC Glucose (mg/dL) 267 H (65-110) mg/dL Random Glucose (70-110) mg/dL Hemoglobin A1c (4.2-6.5) % Calcium (8.4-10.5) mg/dL Phosphorus (2.5-4.5) mg/dL Magnesium (1.7-2.2) mg/dL Total Bilirubin (0.2-1.3) mg/dL AST (17-59) U/L ALT (7-56) U/L Alkaline Phosphatase (38-126) U/L Total Protein (5.8-8.3) g/dL Albumin (3.0-4.8) g/dL Globulin gm/dL Albumin/Globulin Ratio (1.1-1.8) Triglycerides (35-160) mg/dL Cholesterol (130-200) mg/dL LDL Cholesterol Direct (0-129) mg/dL HDL Cholesterol (29-60) mg/dL Free T4 1.39 (0.78-2.19) ng/dL TSH 3rd Generation 1.70 (0.46-4.68) mIU/mL Venous Blood Potassium (3.6-5.2) mmol/L Urine Color (YELLOW) Urine Appearance (CLEAR) Urine pH (4.7-8.0) Ur Specific [place] (1.005-1.035) Urine Protein (<30 mg/dL) mg/dL Urine Glucose (UA) (NEGATIVE) mg/dL Urine Ketones (NEGATIVE) mg/dL Urine Blood (NEGATIVE) Urine Nitrate (NEGATIVE) Urine Bilirubin (NEGATIVE) Urine Urobilinogen (<1 E.U./dL) E.U./dL Ur Leukocyte Esterase (NEGATIVE) Avni/uL B-Hydroxybutyrate 1.83 H (0.02-0.27) mM 12/19/17 12/19/17 12/19/17 Range/Units 04:00 04:00 04:00 WBC 8.8 (4.5-11.0) 10^3/ul RBC 4.49 (3.5-6.1) 10^6/uL Hgb 13.8 L (14.0-18.0) g/dL Hct 37.4 L (42.0-52.0) % MCV 83.3 (80.0-105.0) fl MCH 30.7 (25.0-35.0) pg MCHC 36.9 (31.0-37.0) g/dl RDW 13.0 (11.5-14.5) % Plt Count 228 (120.0-450.0) 10^3/uL MPV 11.4 H (7.0-11.0) fl Gran % 57.8 (50.0-68.0) % Lymph % (Auto) 32.7 (22.0-35.0) % [place] % (Auto) 7.0 H (1.0-6.0) % Eos % (Auto) 1.9 (1.5-5.0) % Baso % (Auto) 0.6 (0.0-3.0) % Gran # 5.10 (1.4-6.5) Lymph # (Auto) 2.9 (1.2-3.4) [place] # (Auto) 0.6 (0.1-0.6) Eos # (Auto) 0.2 (0.0-0.7) Baso # (Auto) 0.05 (0.0-2.0) K/mm3 pO2 (30-55) mm/Hg VBG pH (7.32-7.43) VBG pCO2 (40-60) VBG HCO3 (21-28) mmol/l VBG Total CO2 (22-28) mmol.L VBG O2 Sat (Calc) (40-65) % VBG Base Excess (0.0-2.0) mmol/L VBG Potassium (3.6-5.2) mmol/L Glucose (75-110) mg/dl Lactate (0.7-2.1) mmol/L FiO2 % Sodium 133 (132-148) mmol/L Potassium 3.3 L (3.6-5.0) mmol/L Chloride 94 L (98-107) mmol/L Carbon Dioxide 25 (21-33) mmol/L Anion Gap 17 (10-20) BUN 18 (7-21) mg/dL Creatinine 0.9 (0.8-1.5) mg/dl Est GFR ( Amer) > 60 Est GFR (Non-Af Amer) > 60 POC Glucose (mg/dL) (65-110) mg/dL Random Glucose 322 H* D (70-110) mg/dL Hemoglobin A1c 12.9 H (4.2-6.5) % Calcium 9.0 (8.4-10.5) mg/dL Phosphorus 3.0 (2.5-4.5) mg/dL Magnesium 2.0 (1.7-2.2) mg/dL Total Bilirubin 0.6 (0.2-1.3) mg/dL AST 50 (17-59) U/L ALT 32 (7-56) U/L Alkaline Phosphatase 80 (38-126) U/L Total Protein 7.2 (5.8-8.3) g/dL Albumin 4.2 (3.0-4.8) g/dL Globulin 3.0 gm/dL Albumin/Globulin Ratio 1.4 (1.1-1.8) Triglycerides 2275 H (35-160) mg/dL Cholesterol 225 H (130-200) mg/dL LDL Cholesterol Direct < 30 (0-129) mg/dL HDL Cholesterol 22 L (29-60) mg/dL Free T4 (0.78-2.19) ng/dL TSH 3rd Generation (0.46-4.68) mIU/mL Venous Blood Potassium (3.6-5.2) mmol/L Urine Color (YELLOW) Urine Appearance (CLEAR) Urine pH (4.7-8.0) Ur Specific [place] (1.005-1.035) Urine Protein (<30 mg/dL) mg/dL Urine Glucose (UA) (NEGATIVE) mg/dL Urine Ketones (NEGATIVE) mg/dL Urine Blood (NEGATIVE) Urine Nitrate (NEGATIVE) Urine Bilirubin (NEGATIVE) Urine Urobilinogen (<1 E.U./dL) E.U./dL Ur Leukocyte Esterase (NEGATIVE) Avni/uL B-Hydroxybutyrate (0.02-0.27) mM 12/19/17 12/19/17 12/18/17 Range/Units 03:49 00:32 22:45 WBC (4.5-11.0) 10^3/ul RBC (3.5-6.1) 10^6/uL Hgb (14.0-18.0) g/dL Hct (42.0-52.0) % MCV (80.0-105.0) fl MCH (25.0-35.0) pg MCHC (31.0-37.0) g/dl RDW (11.5-14.5) % Plt Count (120.0-450.0) 10^3/uL MPV (7.0-11.0) fl Gran % (50.0-68.0) % Lymph % (Auto) (22.0-35.0) % [place] % (Auto) (1.0-6.0) % Eos % (Auto) (1.5-5.0) % Baso % (Auto) (0.0-3.0) % Gran # (1.4-6.5) Lymph # (Auto) (1.2-3.4) [place] # (Auto) (0.1-0.6) Eos # (Auto) (0.0-0.7) Baso # (Auto) (0.0-2.0) K/mm3 pO2 32 (30-55) mm/Hg VBG pH 7.35 (7.32-7.43) VBG pCO2 54.0 (40-60) VBG HCO3 29.8 H (21-28) mmol/l VBG Total CO2 31.5 H (22-28) mmol.L VBG O2 Sat (Calc) 61.4 (40-65) % VBG Base Excess 2.9 H (0.0-2.0) mmol/L VBG Potassium 3.4 L (3.6-5.2) mmol/L Glucose 565 H* (75-110) mg/dl Lactate 1.4 (0.7-2.1) mmol/L FiO2 21.0 % Sodium 135.0 (132-148) mmol/L Potassium (3.6-5.0) mmol/L Chloride 93.0 L (98-107) mmol/L Carbon Dioxide (21-33) mmol/L Anion Gap (10-20) BUN (7-21) mg/dL Creatinine (0.8-1.5) mg/dl Est GFR ( Amer) Est GFR (Non-Af Amer) POC Glucose (mg/dL) 306 H 407 H* (65-110) mg/dL Random Glucose (70-110) mg/dL Hemoglobin A1c (4.2-6.5) % Calcium (8.4-10.5) mg/dL Phosphorus (2.5-4.5) mg/dL Magnesium (1.7-2.2) mg/dL Total Bilirubin (0.2-1.3) mg/dL AST (17-59) U/L ALT (7-56) U/L Alkaline Phosphatase (38-126) U/L Total Protein (5.8-8.3) g/dL Albumin (3.0-4.8) g/dL Globulin gm/dL Albumin/Globulin Ratio (1.1-1.8) Triglycerides (35-160) mg/dL Cholesterol (130-200) mg/dL LDL Cholesterol Direct (0-129) mg/dL HDL Cholesterol (29-60) mg/dL Free T4 (0.78-2.19) ng/dL TSH 3rd Generation (0.46-4.68) mIU/mL Venous Blood Potassium 3.4 L (3.6-5.2) mmol/L Urine Color (YELLOW) Urine Appearance (CLEAR) Urine pH (4.7-8.0) Ur Specific [place] (1.005-1.035) Urine Protein (<30 mg/dL) mg/dL Urine Glucose (UA) (NEGATIVE) mg/dL Urine Ketones (NEGATIVE) mg/dL Urine Blood (NEGATIVE) Urine Nitrate (NEGATIVE) Urine Bilirubin (NEGATIVE) Urine Urobilinogen (<1 E.U./dL) E.U./dL Ur Leukocyte Esterase (NEGATIVE) Avni/uL B-Hydroxybutyrate (0.02-0.27) mM 12/18/17 12/18/17 12/18/17 Range/Units 22:44 22:36 21:20 WBC (4.5-11.0) 10^3/ul RBC (3.5-6.1) 10^6/uL Hgb (14.0-18.0) g/dL Hct (42.0-52.0) % MCV (80.0-105.0) fl MCH (25.0-35.0) pg MCHC (31.0-37.0) g/dl RDW (11.5-14.5) % Plt Count (120.0-450.0) 10^3/uL MPV (7.0-11.0) fl Gran % (50.0-68.0) % Lymph % (Auto) (22.0-35.0) % [place] % (Auto) (1.0-6.0) % Eos % (Auto) (1.5-5.0) % Baso % (Auto) (0.0-3.0) % Gran # (1.4-6.5) Lymph # (Auto) (1.2-3.4) [place] # (Auto) (0.1-0.6) Eos # (Auto) (0.0-0.7) Baso # (Auto) (0.0-2.0) K/mm3 pO2 (30-55) mm/Hg VBG pH (7.32-7.43) VBG pCO2 (40-60) VBG HCO3 (21-28) mmol/l VBG Total CO2 (22-28) mmol.L VBG O2 Sat (Calc) (40-65) % VBG Base Excess (0.0-2.0) mmol/L VBG Potassium (3.6-5.2) mmol/L Glucose (75-110) mg/dl Lactate (0.7-2.1) mmol/L FiO2 % Sodium 131 L (132-148) mmol/L Potassium 3.7 (3.6-5.0) mmol/L Chloride 86 L (98-107) mmol/L Carbon Dioxide 26 (21-33) mmol/L Anion Gap 22 H (10-20) BUN 17 (7-21) mg/dL Creatinine 1.3 (0.8-1.5) mg/dl Est GFR ( Amer) > 60 Est GFR (Non-Af Amer) 59 POC Glucose (mg/dL) > 500 H* (65-110) mg/dL Random Glucose 628 H* (70-110) mg/dL Hemoglobin A1c (4.2-6.5) % Calcium 9.1 (8.4-10.5) mg/dL Phosphorus (2.5-4.5) mg/dL Magnesium 1.8 (1.7-2.2) mg/dL Total Bilirubin 1.0 (0.2-1.3) mg/dL AST 64 H (17-59) U/L ALT 39 (7-56) U/L Alkaline Phosphatase 90 (38-126) U/L Total Protein 8.0 (5.8-8.3) g/dL Albumin 4.5 (3.0-4.8) g/dL Globulin 3.4 gm/dL Albumin/Globulin Ratio 1.3 (1.1-1.8) Triglycerides (35-160) mg/dL Cholesterol (130-200) mg/dL LDL Cholesterol Direct (0-129) mg/dL HDL Cholesterol (29-60) mg/dL Free T4 (0.78-2.19) ng/dL TSH 3rd Generation (0.46-4.68) mIU/mL Venous Blood Potassium (3.6-5.2) mmol/L Urine Color Light yellow (YELLOW) Urine Appearance Clear (CLEAR) Urine pH 6.0 (4.7-8.0) Ur Specific [place] <= 1.005 (1.005-1.035) Urine Protein Negative (<30 mg/dL) mg/dL Urine Glucose (UA) >=1000 (NEGATIVE) mg/dL Urine Ketones 15 H (NEGATIVE) mg/dL Urine Blood Negative (NEGATIVE) Urine Nitrate Negative (NEGATIVE) Urine Bilirubin Negative (NEGATIVE) Urine Urobilinogen 0.2 (<1 E.U./dL) E.U./dL Ur Leukocyte Esterase Negative (NEGATIVE) Avni/uL B-Hydroxybutyrate (0.02-0.27) mM 12/18/17 12/18/17 Range/Units 21:20 21:18 WBC 8.0 (4.5-11.0) 10^3/ul RBC 4.81 (3.5-6.1) 10^6/uL Hgb 14.8 (14.0-18.0) g/dL Hct 40.3 L (42.0-52.0) % MCV 83.8 (80.0-105.0) fl MCH 30.8 (25.0-35.0) pg MCHC 36.7 (31.0-37.0) g/dl RDW 12.9 (11.5-14.5) % Plt Count 233 (120.0-450.0) 10^3/uL MPV 12.0 H (7.0-11.0) fl Gran % 72.6 H (50.0-68.0) % Lymph % (Auto) 19.8 L (22.0-35.0) % [place] % (Auto) 5.9 (1.0-6.0) % Eos % (Auto) 1.3 L (1.5-5.0) % Baso % (Auto) 0.4 (0.0-3.0) % Gran # 5.82 (1.4-6.5) Lymph # (Auto) 1.6 (1.2-3.4) [place] # (Auto) 0.5 (0.1-0.6) Eos # (Auto) 0.1 (0.0-0.7) Baso # (Auto) 0.03 (0.0-2.0) K/mm3 pO2 (30-55) mm/Hg VBG pH (7.32-7.43) VBG pCO2 (40-60) VBG HCO3 (21-28) mmol/l VBG Total CO2 (22-28) mmol.L VBG O2 Sat (Calc) (40-65) % VBG Base Excess (0.0-2.0) mmol/L VBG Potassium (3.6-5.2) mmol/L Glucose (75-110) mg/dl Lactate (0.7-2.1) mmol/L FiO2 % Sodium (132-148) mmol/L Potassium (3.6-5.0) mmol/L Chloride (98-107) mmol/L Carbon Dioxide (21-33) mmol/L Anion Gap (10-20) BUN (7-21) mg/dL Creatinine (0.8-1.5) mg/dl Est GFR ( Amer) Est GFR (Non-Af Amer) POC Glucose (mg/dL) > 500 H* (65-110) mg/dL Random Glucose (70-110) mg/dL Hemoglobin A1c (4.2-6.5) % Calcium (8.4-10.5) mg/dL Phosphorus (2.5-4.5) mg/dL Magnesium (1.7-2.2) mg/dL Total Bilirubin (0.2-1.3) mg/dL AST (17-59) U/L ALT (7-56) U/L Alkaline Phosphatase (38-126) U/L Total Protein (5.8-8.3) g/dL Albumin (3.0-4.8) g/dL Globulin gm/dL Albumin/Globulin Ratio (1.1-1.8) Triglycerides (35-160) mg/dL Cholesterol (130-200) mg/dL LDL Cholesterol Direct (0-129) mg/dL HDL Cholesterol (29-60) mg/dL Free T4 (0.78-2.19) ng/dL TSH 3rd Generation (0.46-4.68) mIU/mL Venous Blood Potassium (3.6-5.2) mmol/L Urine Color (YELLOW) Urine Appearance (CLEAR) Urine pH (4.7-8.0) Ur Specific [place] (1.005-1.035) Urine Protein (<30 mg/dL) mg/dL Urine Glucose (UA) (NEGATIVE) mg/dL Urine Ketones (NEGATIVE) mg/dL Urine Blood (NEGATIVE) Urine Nitrate (NEGATIVE) Urine Bilirubin (NEGATIVE) Urine Urobilinogen (<1 E.U./dL) E.U./dL Ur Leukocyte Esterase (NEGATIVE) Avni/uL B-Hydroxybutyrate (0.02-0.27) mM Laboratory Results - last 24 hr 1012/18/17 12/18/17 21:18 21:20 21:20 WBC 8.0 RBC 4.81 Hgb 14.8 Hct 40.3 L MCV 83.8 MCH 30.8 MCHC 36.7 RDW 12.9 Plt Count 233 MPV 12.0 H Gran % 72.6 H Lymph % (Auto) 19.8 L [place] % (Auto) 5.9 Eos % (Auto) 1.3 L Baso % (Auto) 0.4 Gran # 5.82 Lymph # (Auto) 1.6 [place] # (Auto) 0.5 Eos # (Auto) 0.1 Baso # (Auto) 0.03 pO2 VBG pH VBG pCO2 VBG HCO3 VBG Total CO2 VBG O2 Sat (Calc) VBG Base Excess VBG Potassium Glucose Lactate FiO2 Sodium 131 L Potassium 3.7 Chloride 86 L Carbon Dioxide 26 Anion Gap 22 H BUN 17 Creatinine 1.3 Est GFR ( Amer) > 60 Est GFR (Non-Af Amer) 59 POC Glucose (mg/dL) > 500 H* Random Glucose 628 H* Hemoglobin A1c Calcium 9.1 Phosphorus Magnesium 1.8 Total Bilirubin 1.0 AST 64 H ALT 39 Alkaline Phosphatase 90 Total Protein 8.0 Albumin 4.5 Globulin 3.4 Albumin/Globulin Ratio 1.3 Triglycerides Cholesterol LDL Cholesterol Direct HDL Cholesterol Free T4 TSH 3rd Generation Venous Blood Potassium Urine Color Urine Appearance Urine pH Ur Specific [place] Urine Protein Urine Glucose (UA) Urine Ketones Urine Blood Urine Nitrate Urine Bilirubin Urine Urobilinogen Ur Leukocyte Esterase B-Hydroxybutyrate 12/18/17 12/18/17 12/18/17 22:36 22:44 22:45 WBC RBC Hgb Hct MCV MCH MCHC RDW Plt Count MPV Gran % Lymph % (Auto) [place] % (Auto) Eos % (Auto) Baso % (Auto) Gran # Lymph # (Auto) [place] # (Auto) Eos # (Auto) Baso # (Auto) pO2 32 VBG pH 7.35 VBG pCO2 54.0 VBG HCO3 29.8 H VBG Total CO2 31.5 H VBG O2 Sat (Calc) 61.4 VBG Base Excess 2.9 H VBG Potassium 3.4 L Glucose 565 H* Lactate 1.4 FiO2 21.0 Sodium 135.0 Potassium Chloride 93.0 L Carbon Dioxide Anion Gap BUN Creatinine Est GFR ( Amer) Est GFR (Non-Af Amer) POC Glucose (mg/dL) > 500 H* Random Glucose Hemoglobin A1c Calcium Phosphorus Magnesium Total Bilirubin AST ALT Alkaline Phosphatase Total Protein Albumin Globulin Albumin/Globulin Ratio Triglycerides Cholesterol LDL Cholesterol Direct HDL Cholesterol Free T4 TSH 3rd Generation Venous Blood Potassium 3.4 L Urine Color Light yellow Urine Appearance Clear Urine pH 6.0 Ur Specific [place] <= 1.005 Urine Protein Negative Urine Glucose (UA) >=1000 Urine Ketones 15 H Urine Blood Negative Urine Nitrate Negative Urine Bilirubin Negative Urine Urobilinogen 0.2 Ur Leukocyte Esterase Negative B-Hydroxybutyrate 12/19/17 12/19/17 12/19/17 00:32 03:49 04:00 WBC 8.8 RBC 4.49 Hgb 13.8 L Hct 37.4 L MCV 83.3 MCH 30.7 MCHC 36.9 RDW 13.0 Plt Count 228 MPV 11.4 H Gran % 57.8 Lymph % (Auto) 32.7 [place] % (Auto) 7.0 H Eos % (Auto) 1.9 Baso % (Auto) 0.6 Gran # 5.10 Lymph # (Auto) 2.9 [place] # (Auto) 0.6 Eos # (Auto) 0.2 Baso # (Auto) 0.05 pO2 VBG pH VBG pCO2 VBG HCO3 VBG Total CO2 VBG O2 Sat (Calc) VBG Base Excess VBG Potassium Glucose Lactate FiO2 Sodium Potassium Chloride Carbon Dioxide Anion Gap BUN Creatinine Est GFR ( Amer) Est GFR (Non-Af Amer) POC Glucose (mg/dL) 407 H* 306 H Random Glucose Hemoglobin A1c Calcium Phosphorus Magnesium Total Bilirubin AST ALT Alkaline Phosphatase Total Protein Albumin Globulin Albumin/Globulin Ratio Triglycerides Cholesterol LDL Cholesterol Direct HDL Cholesterol Free T4 TSH 3rd Generation Venous Blood Potassium Urine Color Urine Appearance Urine pH Ur Specific [place] Urine Protein Urine Glucose (UA) Urine Ketones Urine Blood Urine Nitrate Urine Bilirubin Urine Urobilinogen Ur Leukocyte Esterase B-Hydroxybutyrate 12/19/17 12/19/17 12/19/17 04:00 04:00 04:00 WBC RBC Hgb Hct MCV MCH MCHC RDW Plt Count MPV Gran % Lymph % (Auto) [place] % (Auto) Eos % (Auto) Baso % (Auto) Gran # Lymph # (Auto) [place] # (Auto) Eos # (Auto) Baso # (Auto) pO2 VBG pH VBG pCO2 VBG HCO3 VBG Total CO2 VBG O2 Sat (Calc) VBG Base Excess VBG Potassium Glucose Lactate FiO2 Sodium 133 Potassium 3.3 L Chloride 94 L Carbon Dioxide 25 Anion Gap 17 BUN 18 Creatinine 0.9 Est GFR ( Amer) > 60 Est GFR (Non-Af Amer) > 60 POC Glucose (mg/dL) Random Glucose 322 H* D Hemoglobin A1c 12.9 H Calcium 9.0 Phosphorus 3.0 Magnesium 2.0 Total Bilirubin 0.6 AST 50 ALT 32 Alkaline Phosphatase 80 Total Protein 7.2 Albumin 4.2 Globulin 3.0 Albumin/Globulin Ratio 1.4 Triglycerides 2275 H Cholesterol 225 H LDL Cholesterol Direct < 30 HDL Cholesterol 22 L Free T4 1.39 TSH 3rd Generation 1.70 Venous Blood Potassium Urine Color Urine Appearance Urine pH Ur Specific [place] Urine Protein Urine Glucose (UA) Urine Ketones Urine Blood Urine Nitrate Urine Bilirubin Urine Urobilinogen Ur Leukocyte Esterase B-Hydroxybutyrate 12/19/17 12/19/17 12/19/17 04:00 06:11 08:00 WBC RBC Hgb Hct MCV MCH MCHC RDW Plt Count MPV Gran % Lymph % (Auto) [place] % (Auto) Eos % (Auto) Baso % (Auto) Gran # Lymph # (Auto) [place] # (Auto) Eos # (Auto) Baso # (Auto) pO2 VBG pH VBG pCO2 VBG HCO3 VBG Total CO2 VBG O2 Sat (Calc) VBG Base Excess VBG Potassium Glucose Lactate FiO2 Sodium 134 Potassium 3.4 L Chloride 98 Carbon Dioxide 22 Anion Gap 17 BUN 15 Creatinine 0.7 L Est GFR ( Amer) > 60 Est GFR (Non-Af Amer) > 60 POC Glucose (mg/dL) 267 H Random Glucose 266 H Hemoglobin A1c Calcium 8.8 Phosphorus Magnesium Total Bilirubin AST ALT Alkaline Phosphatase Total Protein Albumin Globulin Albumin/Globulin Ratio Triglycerides Cholesterol LDL Cholesterol Direct HDL Cholesterol Free T4 TSH 3rd Generation Venous Blood Potassium Urine Color Urine Appearance Urine pH Ur Specific [place] Urine Protein Urine Glucose (UA) Urine Ketones Urine Blood Urine Nitrate Urine Bilirubin Urine Urobilinogen Ur Leukocyte Esterase B-Hydroxybutyrate 1.83 H 12/19/17 12/19/17 12/19/17 08:08 09:05 10:25 WBC RBC Hgb Hct MCV MCH MCHC RDW Plt Count MPV Gran % Lymph % (Auto) [place] % (Auto) Eos % (Auto) Baso % (Auto) Gran # Lymph # (Auto) [place] # (Auto) Eos # (Auto) Baso # (Auto) pO2 VBG pH VBG pCO2 VBG HCO3 VBG Total CO2 VBG O2 Sat (Calc) VBG Base Excess VBG Potassium Glucose Lactate FiO2 Sodium Potassium Chloride Carbon Dioxide Anion Gap BUN Creatinine Est GFR ( Amer) Est GFR (Non-Af Amer) POC Glucose (mg/dL) 262 H 256 H 250 H Random Glucose Hemoglobin A1c Calcium Phosphorus Magnesium Total Bilirubin AST ALT Alkaline Phosphatase Total Protein Albumin Globulin Albumin/Globulin Ratio Triglycerides Cholesterol LDL Cholesterol Direct HDL Cholesterol Free T4 TSH 3rd Generation Venous Blood Potassium Urine Color Urine Appearance Urine pH Ur Specific Fountain Urine Protein Urine Glucose (UA) Urine Ketones Urine Blood Urine Nitrate Urine Bilirubin Urine Urobilinogen Ur Leukocyte Esterase B-Hydroxybutyrate 12/19/17 12/19/17 11:13 11:58 WBC RBC Hgb Hct MCV MCH MCHC RDW Plt Count MPV Gran % Lymph % (Auto) [place] % (Auto) Eos % (Auto) Baso % (Auto) Gran # Lymph # (Auto) [place] # (Auto) Eos # (Auto) Baso # (Auto) pO2 VBG pH VBG pCO2 VBG HCO3 VBG Total CO2 VBG O2 Sat (Calc) VBG Base Excess VBG Potassium Glucose Lactate FiO2 Sodium Potassium Chloride Carbon Dioxide Anion Gap BUN Creatinine Est GFR ( Amer) Est GFR (Non-Af Amer) POC Glucose (mg/dL) 239 H 196 H Random Glucose Hemoglobin A1c Calcium Phosphorus Magnesium Total Bilirubin AST ALT Alkaline Phosphatase Total Protein Albumin Globulin Albumin/Globulin Ratio Triglycerides Cholesterol LDL Cholesterol Direct HDL Cholesterol Free T4 TSH 3rd Generation Venous Blood Potassium Urine Color Urine Appearance Urine pH Ur Specific [place]ountain Urine Protein Urine Glucose (UA) Urine Ketones Urine Blood Urine Nitrate Urine Bilirubin Urine Urobilinogen Ur Leukocyte Esterase B-Hydroxybutyrate EKG/Cardiology Studies: Cardiology / EKG Studies 12/19/17 00:06 EKG [ELECTROCARDIOGRAM] Stat Comment: Reason For Exam: baseline EKG Fingerstick Blood Sugar Results: 267 Review of Systems - Review of Systems Review of Systems: per HPI Critical Care Progress Note - Nutrition Nutrition: Nutrition Category Date Time Status NPO Diet [DIET] Diets 12/19/17 Breakfast Ordered Assessment/Plan - Assessment and Plan (Free Text) Assessment: 47 y/o M with PMHx of recently diagnosed DM presented to [facility] with complaints of gradual onset blurry vision. He was found in ED to have glucose in the 600s. He was given 10u IV insulin and 8u SC insulin. He was initially transferred to med/surg, but was found to have anion gap of 19. He was subsequently transferred to ICU for management of DKA. He was started on insulin, potassium repleted, BMP q4h, fingerstick BS q1h. His anion gap has been closing, and he has received 60mEQ of K total. Plan: Diabetic Ketoacidosis Initially presented with anion gap 19 Currently on insulin drip Monitor anion gap until it reaches 12 Stop insulin drip at 1415 Detemir 30u HS Lispro 12u AC NPH 20u stat BMP q4h FS q1h Start diabetic diet- moderate carb consistency Hypoglycemia protocol HTN Continue Losartan Bipolar Disorder Continue Risperidone DVT/GI PPx: Hep/Pepcid Case seen, examined and discussed with attending physician, Dr. Ramos <Julien Ramos - Last Filed: 12/19/17 16:40> CCU Objective - Vital Signs / Intake & Output Vital Signs (Last 4 hours): Vital Signs Temp Pulse Resp BP Pulse Ox 12/19/17 15:10 93 H 31 H 94 L 12/19/17 15:00 93 H 27 H 136/92 H 94 L 12/19/17 14:50 93 H 34 H 93 L 12/19/17 14:40 98 H 94 L 12/19/17 14:30 97 H 34 H 93 L 12/19/17 14:20 99 H 22 93 L 12/19/17 14:10 100 H 31 H 92 L 12/19/17 14:00 99 H 47 H 139/75 90 L 12/19/17 13:50 96 H 28 H 94 L 12/19/17 13:40 101 H 95 12/19/17 13:30 87 24 94 L 12/19/17 13:21 98.7 F 12/19/17 13:20 86 16 93 L 12/19/17 13:10 88 91 L 12/19/17 13:00 90 31 H 140/96 H 91 L 12/19/17 12:50 96 H 27 H 92 L Intake and Output (Last 8hrs): Intake & Output 12/19/17 12/19/17 12/19/17 06:59 14:59 22:59 Intake Total 250 25 Balance 250 25 Weight 99.79 kg Intake: IV 25 Oral 250 - Medications Active Medications: Active Medications Generic Name Dose Route Start Last Admin Trade Name Freq PRN Reason Stop Dose Admin Atorvastatin Calcium 40 mg 12/19/17 17:00 Lipitor PO DIN EDWARD Dextrose 0 ml 12/19/17 00:10 Dextrose 50% Inj IV STAT PRN Hypoglycemia Protocol Protocol Famotidine 20 mg 12/19/17 22:00 Pepcid PO HS EDWARD Heparin Sodium (Porcine) 5,000 units 12/19/17 10:00 12/19/17 10:53 Heparin SC 5,000 units Q12 EDWARD Administration Protocol Dextrose 1,000 mls @ 0 mls/hr 12/19/17 00:10 Dextrose 5% In Water 1000 Ml IV .Q0M PRN Hypoglycemia Protocol Protocol Per Protocol Potassium Chloride 40 meq/ 1,020 mls @ 125 mls/hr 12/19/17 07:36 12/19/17 11:23 Sodium Chloride IV 125 mls/hr .[id number] EDWARD Administration Insulin Detemir 30 unit 12/19/17 22:00 Levemir SC HS EDWARD Insulin Human Lispro 12 units 12/19/17 16:30 12/19/17 15:04 Humalog SC 12 u AC EDWARD Administration Losartan Potassium 25 mg 12/19/17 10:00 12/19/17 10:54 Cozaar PO 25 mg DAILY EDWARD Administration Risperidone 3 mg 12/19/17 22:00 Risperdal Tab PO HS EDWARD Protocol - Patient Studies Lab Studies: Lab Studies 12/19/17 12/19/17 12/19/17 Range/Units 14:53 13:48 12:00 WBC (4.5-11.0) 10^3/ul RBC (3.5-6.1) 10^6/uL Hgb (14.0-18.0) g/dL Hct (42.0-52.0) % MCV (80.0-105.0) fl MCH (25.0-35.0) pg MCHC (31.0-37.0) g/dl RDW (11.5-14.5) % Plt Count (120.0-450.0) 10^3/uL MPV (7.0-11.0) fl Gran % (50.0-68.0) % Lymph % (Auto) (22.0-35.0) % [place] % (Auto) (1.0-6.0) % Eos % (Auto) (1.5-5.0) % Baso % (Auto) (0.0-3.0) % Gran # (1.4-6.5) Lymph # (Auto) (1.2-3.4) [place] # (Auto) (0.1-0.6) Eos # (Auto) (0.0-0.7) Baso # (Auto) (0.0-2.0) K/mm3 pO2 (30-55) mm/Hg VBG pH (7.32-7.43) VBG pCO2 (40-60) VBG HCO3 (21-28) mmol/l VBG Total CO2 (22-28) mmol.L VBG O2 Sat (Calc) (40-65) % VBG Base Excess (0.0-2.0) mmol/L VBG Potassium (3.6-5.2) mmol/L Glucose (75-110) mg/dl Lactate (0.7-2.1) mmol/L FiO2 % Sodium 136 (132-148) mmol/L Potassium 3.5 L (3.6-5.0) mmol/L Chloride 99 (98-107) mmol/L Carbon Dioxide 27 (21-33) mmol/L Anion Gap 14 (10-20) BUN 14 (7-21) mg/dL Creatinine 0.8 (0.8-1.5) mg/dl Est GFR ( Amer) > 60 Est GFR (Non-Af Amer) > 60 POC Glucose (mg/dL) 356 H 195 H (65-110) mg/dL Random Glucose 235 H (70-110) mg/dL Hemoglobin A1c (4.2-6.5) % Calcium 8.7 (8.4-10.5) mg/dL Phosphorus (2.5-4.5) mg/dL Magnesium (1.7-2.2) mg/dL Total Bilirubin (0.2-1.3) mg/dL AST (17-59) U/L ALT (7-56) U/L Alkaline Phosphatase (38-126) U/L Total Protein (5.8-8.3) g/dL Albumin (3.0-4.8) g/dL Globulin gm/dL Albumin/Globulin Ratio (1.1-1.8) Triglycerides (35-160) mg/dL Cholesterol (130-200) mg/dL LDL Cholesterol Direct (0-129) mg/dL HDL Cholesterol (29-60) mg/dL Free T4 (0.78-2.19) ng/dL TSH 3rd Generation (0.46-4.68) mIU/mL Venous Blood Potassium (3.6-5.2) mmol/L Urine Color (YELLOW) Urine Appearance (CLEAR) Urine pH (4.7-8.0) Ur Specific [place] (1.005-1.035) Urine Protein (<30 mg/dL) mg/dL Urine Glucose (UA) (NEGATIVE) mg/dL Urine Ketones (NEGATIVE) mg/dL Urine Blood (NEGATIVE) Urine Nitrate (NEGATIVE) Urine Bilirubin (NEGATIVE) Urine Urobilinogen (<1 E.U./dL) E.U./dL Ur Leukocyte Esterase (NEGATIVE) Avni/uL B-Hydroxybutyrate (0.02-0.27) mM 12/19/17 12/19/17 12/19/17 Range/Units 11:58 11:13 10:25 WBC (4.5-11.0) 10^3/ul RBC (3.5-6.1) 10^6/uL Hgb (14.0-18.0) g/dL Hct (42.0-52.0) % MCV (80.0-105.0) fl MCH (25.0-35.0) pg MCHC (31.0-37.0) g/dl RDW (11.5-14.5) % Plt Count (120.0-450.0) 10^3/uL MPV (7.0-11.0) fl Gran % (50.0-68.0) % Lymph % (Auto) (22.0-35.0) % [place] % (Auto) (1.0-6.0) % Eos % (Auto) (1.5-5.0) % Baso % (Auto) (0.0-3.0) % Gran # (1.4-6.5) Lymph # (Auto) (1.2-3.4) [place] # (Auto) (0.1-0.6) Eos # (Auto) (0.0-0.7) Baso # (Auto) (0.0-2.0) K/mm3 pO2 (30-55) mm/Hg VBG pH (7.32-7.43) VBG pCO2 (40-60) VBG HCO3 (21-28) mmol/l VBG Total CO2 (22-28) mmol.L VBG O2 Sat (Calc) (40-65) % VBG Base Excess (0.0-2.0) mmol/L VBG Potassium (3.6-5.2) mmol/L Glucose (75-110) mg/dl Lactate (0.7-2.1) mmol/L FiO2 % Sodium (132-148) mmol/L Potassium (3.6-5.0) mmol/L Chloride (98-107) mmol/L Carbon Dioxide (21-33) mmol/L Anion Gap (10-20) BUN (7-21) mg/dL Creatinine (0.8-1.5) mg/dl Est GFR ( Amer) Est GFR (Non-Af Amer) POC Glucose (mg/dL) 196 H 239 H 250 H (65-110) mg/dL Random Glucose (70-110) mg/dL Hemoglobin A1c (4.2-6.5) % Calcium (8.4-10.5) mg/dL Phosphorus (2.5-4.5) mg/dL Magnesium (1.7-2.2) mg/dL Total Bilirubin (0.2-1.3) mg/dL AST (17-59) U/L ALT (7-56) U/L Alkaline Phosphatase (38-126) U/L Total Protein (5.8-8.3) g/dL Albumin (3.0-4.8) g/dL Globulin gm/dL Albumin/Globulin Ratio (1.1-1.8) Triglycerides (35-160) mg/dL Cholesterol (130-200) mg/dL LDL Cholesterol Direct (0-129) mg/dL HDL Cholesterol (29-60) mg/dL Free T4 (0.78-2.19) ng/dL TSH 3rd Generation (0.46-4.68) mIU/mL Venous Blood Potassium (3.6-5.2) mmol/L Urine Color (YELLOW) Urine Appearance (CLEAR) Urine pH (4.7-8.0) Ur Specific [place]ountain (1.005-1.035) Urine Protein (<30 mg/dL) mg/dL Urine Glucose (UA) (NEGATIVE) mg/dL Urine Ketones (NEGATIVE) mg/dL Urine Blood (NEGATIVE) Urine Nitrate (NEGATIVE) Urine Bilirubin (NEGATIVE) Urine Urobilinogen (<1 E.U./dL) E.U./dL Ur Leukocyte Esterase (NEGATIVE) Avni/uL B-Hydroxybutyrate (0.02-0.27) mM 12/19/17 12/19/17 12/19/17 Range/Units 09:05 08:08 08:00 WBC (4.5-11.0) 10^3/ul RBC (3.5-6.1) 10^6/uL Hgb (14.0-18.0) g/dL Hct (42.0-52.0) % MCV (80.0-105.0) fl MCH (25.0-35.0) pg MCHC (31.0-37.0) g/dl RDW (11.5-14.5) % Plt Count (120.0-450.0) 10^3/uL MPV (7.0-11.0) fl Gran % (50.0-68.0) % Lymph % (Auto) (22.0-35.0) % [place] % (Auto) (1.0-6.0) % Eos % (Auto) (1.5-5.0) % Baso % (Auto) (0.0-3.0) % Gran # (1.4-6.5) Lymph # (Auto) (1.2-3.4) [place] # (Auto) (0.1-0.6) Eos # (Auto) (0.0-0.7) Baso # (Auto) (0.0-2.0) K/mm3 pO2 (30-55) mm/Hg VBG pH (7.32-7.43) VBG pCO2 (40-60) VBG HCO3 (21-28) mmol/l VBG Total CO2 (22-28) mmol.L VBG O2 Sat (Calc) (40-65) % VBG Base Excess (0.0-2.0) mmol/L VBG Potassium (3.6-5.2) mmol/L Glucose (75-110) mg/dl Lactate (0.7-2.1) mmol/L FiO2 % Sodium 134 (132-148) mmol/L Potassium 3.4 L (3.6-5.0) mmol/L Chloride 98 (98-107) mmol/L Carbon Dioxide 22 (21-33) mmol/L Anion Gap 17 (10-20) BUN 15 (7-21) mg/dL Creatinine 0.7 L (0.8-1.5) mg/dl Est GFR ( Amer) > 60 Est GFR (Non-Af Amer) > 60 POC Glucose (mg/dL) 256 H 262 H (65-110) mg/dL Random Glucose 266 H (70-110) mg/dL Hemoglobin A1c (4.2-6.5) % Calcium 8.8 (8.4-10.5) mg/dL Phosphorus (2.5-4.5) mg/dL Magnesium (1.7-2.2) mg/dL Total Bilirubin (0.2-1.3) mg/dL AST (17-59) U/L ALT (7-56) U/L Alkaline Phosphatase (38-126) U/L Total Protein (5.8-8.3) g/dL Albumin (3.0-4.8) g/dL Globulin gm/dL Albumin/Globulin Ratio (1.1-1.8) Triglycerides (35-160) mg/dL Cholesterol (130-200) mg/dL LDL Cholesterol Direct (0-129) mg/dL HDL Cholesterol (29-60) mg/dL Free T4 (0.78-2.19) ng/dL TSH 3rd Generation (0.46-4.68) mIU/mL Venous Blood Potassium (3.6-5.2) mmol/L Urine Color (YELLOW) Urine Appearance (CLEAR) Urine pH (4.7-8.0) Ur Specific [place] (1.005-1.035) Urine Protein (<30 mg/dL) mg/dL Urine Glucose (UA) (NEGATIVE) mg/dL Urine Ketones (NEGATIVE) mg/dL Urine Blood (NEGATIVE) Urine Nitrate (NEGATIVE) Urine Bilirubin (NEGATIVE) Urine Urobilinogen (<1 E.U./dL) E.U./dL Ur Leukocyte Esterase (NEGATIVE) Avni/uL B-Hydroxybutyrate (0.02-0.27) mM 12/19/17 12/19/17 12/19/17 Range/Units 06:11 04:00 04:00 WBC (4.5-11.0) 10^3/ul RBC (3.5-6.1) 10^6/uL Hgb (14.0-18.0) g/dL Hct (42.0-52.0) % MCV (80.0-105.0) fl MCH (25.0-35.0) pg MCHC (31.0-37.0) g/dl RDW (11.5-14.5) % Plt Count (120.0-450.0) 10^3/uL MPV (7.0-11.0) fl Gran % (50.0-68.0) % Lymph % (Auto) (22.0-35.0) % [place] % (Auto) (1.0-6.0) % Eos % (Auto) (1.5-5.0) % Baso % (Auto) (0.0-3.0) % Gran # (1.4-6.5) Lymph # (Auto) (1.2-3.4) [place] # (Auto) (0.1-0.6) Eos # (Auto) (0.0-0.7) Baso # (Auto) (0.0-2.0) K/mm3 pO2 (30-55) mm/Hg VBG pH (7.32-7.43) VBG pCO2 (40-60) VBG HCO3 (21-28) mmol/l VBG Total CO2 (22-28) mmol.L VBG O2 Sat (Calc) (40-65) % VBG Base Excess (0.0-2.0) mmol/L VBG Potassium (3.6-5.2) mmol/L Glucose (75-110) mg/dl Lactate (0.7-2.1) mmol/L FiO2 % Sodium (132-148) mmol/L Potassium (3.6-5.0) mmol/L Chloride (98-107) mmol/L Carbon Dioxide (21-33) mmol/L Anion Gap (10-20) BUN (7-21) mg/dL Creatinine (0.8-1.5) mg/dl Est GFR ( Amer) Est GFR (Non-Af Amer) POC Glucose (mg/dL) 267 H (65-110) mg/dL Random Glucose (70-110) mg/dL Hemoglobin A1c (4.2-6.5) % Calcium (8.4-10.5) mg/dL Phosphorus (2.5-4.5) mg/dL Magnesium (1.7-2.2) mg/dL Total Bilirubin (0.2-1.3) mg/dL AST (17-59) U/L ALT (7-56) U/L Alkaline Phosphatase (38-126) U/L Total Protein (5.8-8.3) g/dL Albumin (3.0-4.8) g/dL Globulin gm/dL Albumin/Globulin Ratio (1.1-1.8) Triglycerides (35-160) mg/dL Cholesterol (130-200) mg/dL LDL Cholesterol Direct (0-129) mg/dL HDL Cholesterol (29-60) mg/dL Free T4 1.39 (0.78-2.19) ng/dL TSH 3rd Generation 1.70 (0.46-4.68) mIU/mL Venous Blood Potassium (3.6-5.2) mmol/L Urine Color (YELLOW) Urine Appearance (CLEAR) Urine pH (4.7-8.0) Ur Specific [place] (1.005-1.035) Urine Protein (<30 mg/dL) mg/dL Urine Glucose (UA) (NEGATIVE) mg/dL Urine Ketones (NEGATIVE) mg/dL Urine Blood (NEGATIVE) Urine Nitrate (NEGATIVE) Urine Bilirubin (NEGATIVE) Urine Urobilinogen (<1 E.U./dL) E.U./dL Ur Leukocyte Esterase (NEGATIVE) Avni/uL B-Hydroxybutyrate 1.83 H (0.02-0.27) mM 12/19/17 12/19/17 12/19/17 Range/Units 04:00 04:00 04:00 WBC 8.8 (4.5-11.0) 10^3/ul RBC 4.49 (3.5-6.1) 10^6/uL Hgb 13.8 L (14.0-18.0) g/dL Hct 37.4 L (42.0-52.0) % MCV 83.3 (80.0-105.0) fl MCH 30.7 (25.0-35.0) pg MCHC 36.9 (31.0-37.0) g/dl RDW 13.0 (11.5-14.5) % Plt Count 228 (120.0-450.0) 10^3/uL MPV 11.4 H (7.0-11.0) fl Gran % 57.8 (50.0-68.0) % Lymph % (Auto) 32.7 (22.0-35.0) % [place] % (Auto) 7.0 H (1.0-6.0) % Eos % (Auto) 1.9 (1.5-5.0) % Baso % (Auto) 0.6 (0.0-3.0) % Gran # 5.10 (1.4-6.5) Lymph # (Auto) 2.9 (1.2-3.4) [place] # (Auto) 0.6 (0.1-0.6) Eos # (Auto) 0.2 (0.0-0.7) Baso # (Auto) 0.05 (0.0-2.0) K/mm3 pO2 (30-55) mm/Hg VBG pH (7.32-7.43) VBG pCO2 (40-60) VBG HCO3 (21-28) mmol/l VBG Total CO2 (22-28) mmol.L VBG O2 Sat (Calc) (40-65) % VBG Base Excess (0.0-2.0) mmol/L VBG Potassium (3.6-5.2) mmol/L Glucose (75-110) mg/dl Lactate (0.7-2.1) mmol/L FiO2 % Sodium 133 (132-148) mmol/L Potassium 3.3 L (3.6-5.0) mmol/L Chloride 94 L (98-107) mmol/L Carbon Dioxide 25 (21-33) mmol/L Anion Gap 17 (10-20) BUN 18 (7-21) mg/dL Creatinine 0.9 (0.8-1.5) mg/dl Est GFR ( Amer) > 60 Est GFR (Non-Af Amer) > 60 POC Glucose (mg/dL) (65-110) mg/dL Random Glucose 322 H* D (70-110) mg/dL Hemoglobin A1c 12.9 H (4.2-6.5) % Calcium 9.0 (8.4-10.5) mg/dL Phosphorus 3.0 (2.5-4.5) mg/dL Magnesium 2.0 (1.7-2.2) mg/dL Total Bilirubin 0.6 (0.2-1.3) mg/dL AST 50 (17-59) U/L ALT 32 (7-56) U/L Alkaline Phosphatase 80 (38-126) U/L Total Protein 7.2 (5.8-8.3) g/dL Albumin 4.2 (3.0-4.8) g/dL Globulin 3.0 gm/dL Albumin/Globulin Ratio 1.4 (1.1-1.8) Triglycerides 2275 H (35-160) mg/dL Cholesterol 225 H (130-200) mg/dL LDL Cholesterol Direct < 30 (0-129) mg/dL HDL Cholesterol 22 L (29-60) mg/dL Free T4 (0.78-2.19) ng/dL TSH 3rd Generation (0.46-4.68) mIU/mL Venous Blood Potassium (3.6-5.2) mmol/L Urine Color (YELLOW) Urine Appearance (CLEAR) Urine pH (4.7-8.0) Ur Specific [place] (1.005-1.035) Urine Protein (<30 mg/dL) mg/dL Urine Glucose (UA) (NEGATIVE) mg/dL Urine Ketones (NEGATIVE) mg/dL Urine Blood (NEGATIVE) Urine Nitrate (NEGATIVE) Urine Bilirubin (NEGATIVE) Urine Urobilinogen (<1 E.U./dL) E.U./dL Ur Leukocyte Esterase (NEGATIVE) Avni/uL B-Hydroxybutyrate (0.02-0.27) mM 12/19/17 12/19/17 12/18/17 Range/Units 03:49 00:32 22:45 WBC (4.5-11.0) 10^3/ul RBC (3.5-6.1) 10^6/uL Hgb (14.0-18.0) g/dL Hct (42.0-52.0) % MCV (80.0-105.0) fl MCH (25.0-35.0) pg MCHC (31.0-37.0) g/dl RDW (11.5-14.5) % Plt Count (120.0-450.0) 10^3/uL MPV (7.0-11.0) fl Gran % (50.0-68.0) % Lymph % (Auto) (22.0-35.0) % [place] % (Auto) (1.0-6.0) % Eos % (Auto) (1.5-5.0) % Baso % (Auto) (0.0-3.0) % Gran # (1.4-6.5) Lymph # (Auto) (1.2-3.4) [place] # (Auto) (0.1-0.6) Eos # (Auto) (0.0-0.7) Baso # (Auto) (0.0-2.0) K/mm3 pO2 32 (30-55) mm/Hg VBG pH 7.35 (7.32-7.43) VBG pCO2 54.0 (40-60) VBG HCO3 29.8 H (21-28) mmol/l VBG Total CO2 31.5 H (22-28) mmol.L VBG O2 Sat (Calc) 61.4 (40-65) % VBG Base Excess 2.9 H (0.0-2.0) mmol/L VBG Potassium 3.4 L (3.6-5.2) mmol/L Glucose 565 H* (75-110) mg/dl Lactate 1.4 (0.7-2.1) mmol/L FiO2 21.0 % Sodium 135.0 (132-148) mmol/L Potassium (3.6-5.0) mmol/L Chloride 93.0 L (98-107) mmol/L Carbon Dioxide (21-33) mmol/L Anion Gap (10-20) BUN (7-21) mg/dL Creatinine (0.8-1.5) mg/dl Est GFR ( Amer) Est GFR (Non-Af Amer) POC Glucose (mg/dL) 306 H 407 H* (65-110) mg/dL Random Glucose (70-110) mg/dL Hemoglobin A1c (4.2-6.5) % Calcium (8.4-10.5) mg/dL Phosphorus (2.5-4.5) mg/dL Magnesium (1.7-2.2) mg/dL Total Bilirubin (0.2-1.3) mg/dL AST (17-59) U/L ALT (7-56) U/L Alkaline Phosphatase (38-126) U/L Total Protein (5.8-8.3) g/dL Albumin (3.0-4.8) g/dL Globulin gm/dL Albumin/Globulin Ratio (1.1-1.8) Triglycerides (35-160) mg/dL Cholesterol (130-200) mg/dL LDL Cholesterol Direct (0-129) mg/dL HDL Cholesterol (29-60) mg/dL Free T4 (0.78-2.19) ng/dL TSH 3rd Generation (0.46-4.68) mIU/mL Venous Blood Potassium 3.4 L (3.6-5.2) mmol/L Urine Color (YELLOW) Urine Appearance (CLEAR) Urine pH (4.7-8.0) Ur Specific [place] (1.005-1.035) Urine Protein (<30 mg/dL) mg/dL Urine Glucose (UA) (NEGATIVE) mg/dL Urine Ketones (NEGATIVE) mg/dL Urine Blood (NEGATIVE) Urine Nitrate (NEGATIVE) Urine Bilirubin (NEGATIVE) Urine Urobilinogen (<1 E.U./dL) E.U./dL Ur Leukocyte Esterase (NEGATIVE) Avni/uL B-Hydroxybutyrate (0.02-0.27) mM 12/18/17 12/18/17 12/18/17 Range/Units 22:44 22:36 21:20 WBC (4.5-11.0) 10^3/ul RBC (3.5-6.1) 10^6/uL Hgb (14.0-18.0) g/dL Hct (42.0-52.0) % MCV (80.0-105.0) fl MCH (25.0-35.0) pg MCHC (31.0-37.0) g/dl RDW (11.5-14.5) % Plt Count (120.0-450.0) 10^3/uL MPV (7.0-11.0) fl Gran % (50.0-68.0) % Lymph % (Auto) (22.0-35.0) % [place] % (Auto) (1.0-6.0) % Eos % (Auto) (1.5-5.0) % Baso % (Auto) (0.0-3.0) % Gran # (1.4-6.5) Lymph # (Auto) (1.2-3.4) [place] # (Auto) (0.1-0.6) Eos # (Auto) (0.0-0.7) Baso # (Auto) (0.0-2.0) K/mm3 pO2 (30-55) mm/Hg VBG pH (7.32-7.43) VBG pCO2 (40-60) VBG HCO3 (21-28) mmol/l VBG Total CO2 (22-28) mmol.L VBG O2 Sat (Calc) (40-65) % VBG Base Excess (0.0-2.0) mmol/L VBG Potassium (3.6-5.2) mmol/L Glucose (75-110) mg/dl Lactate (0.7-2.1) mmol/L FiO2 % Sodium 131 L (132-148) mmol/L Potassium 3.7 (3.6-5.0) mmol/L Chloride 86 L (98-107) mmol/L Carbon Dioxide 26 (21-33) mmol/L Anion Gap 22 H (10-20) BUN 17 (7-21) mg/dL Creatinine 1.3 (0.8-1.5) mg/dl Est GFR ( Amer) > 60 Est GFR (Non-Af Amer) 59 POC Glucose (mg/dL) > 500 H* (65-110) mg/dL Random Glucose 628 H* (70-110) mg/dL Hemoglobin A1c (4.2-6.5) % Calcium 9.1 (8.4-10.5) mg/dL Phosphorus (2.5-4.5) mg/dL Magnesium 1.8 (1.7-2.2) mg/dL Total Bilirubin 1.0 (0.2-1.3) mg/dL AST 64 H (17-59) U/L ALT 39 (7-56) U/L Alkaline Phosphatase 90 (38-126) U/L Total Protein 8.0 (5.8-8.3) g/dL Albumin 4.5 (3.0-4.8) g/dL Globulin 3.4 gm/dL Albumin/Globulin Ratio 1.3 (1.1-1.8) Triglycerides (35-160) mg/dL Cholesterol (130-200) mg/dL LDL Cholesterol Direct (0-129) mg/dL HDL Cholesterol (29-60) mg/dL Free T4 (0.78-2.19) ng/dL TSH 3rd Generation (0.46-4.68) mIU/mL Venous Blood Potassium (3.6-5.2) mmol/L Urine Color Light yellow (YELLOW) Urine Appearance Clear (CLEAR) Urine pH 6.0 (4.7-8.0) Ur Specific Fountain <= 1.005 (1.005-1.035) Urine Protein Negative (<30 mg/dL) mg/dL Urine Glucose (UA) >=1000 (NEGATIVE) mg/dL Urine Ketones 15 H (NEGATIVE) mg/dL Urine Blood Negative (NEGATIVE) Urine Nitrate Negative (NEGATIVE) Urine Bilirubin Negative (NEGATIVE) Urine Urobilinogen 0.2 (<1 E.U./dL) E.U./dL Ur Leukocyte Esterase Negative (NEGATIVE) Avni/uL B-Hydroxybutyrate (0.02-0.27) mM 12/18/17 12/18/17 Range/Units 21:20 21:18 WBC 8.0 (4.5-11.0) 10^3/ul RBC 4.81 (3.5-6.1) 10^6/uL Hgb 14.8 (14.0-18.0) g/dL Hct 40.3 L (42.0-52.0) % MCV 83.8 (80.0-105.0) fl MCH 30.8 (25.0-35.0) pg MCHC 36.7 (31.0-37.0) g/dl RDW 12.9 (11.5-14.5) % Plt Count 233 (120.0-450.0) 10^3/uL MPV 12.0 H (7.0-11.0) fl Gran % 72.6 H (50.0-68.0) % Lymph % (Auto) 19.8 L (22.0-35.0) % [place] % (Auto) 5.9 (1.0-6.0) % Eos % (Auto) 1.3 L (1.5-5.0) % Baso % (Auto) 0.4 (0.0-3.0) % Gran # 5.82 (1.4-6.5) Lymph # (Auto) 1.6 (1.2-3.4) [place] # (Auto) 0.5 (0.1-0.6) Eos # (Auto) 0.1 (0.0-0.7) Baso # (Auto) 0.03 (0.0-2.0) K/mm3 pO2 (30-55) mm/Hg VBG pH (7.32-7.43) VBG pCO2 (40-60) VBG HCO3 (21-28) mmol/l VBG Total CO2 (22-28) mmol.L VBG O2 Sat (Calc) (40-65) % VBG Base Excess (0.0-2.0) mmol/L VBG Potassium (3.6-5.2) mmol/L Glucose (75-110) mg/dl Lactate (0.7-2.1) mmol/L FiO2 % Sodium (132-148) mmol/L Potassium (3.6-5.0) mmol/L Chloride (98-107) mmol/L Carbon Dioxide (21-33) mmol/L Anion Gap (10-20) BUN (7-21) mg/dL Creatinine (0.8-1.5) mg/dl Est GFR ( Amer) Est GFR (Non-Af Amer) POC Glucose (mg/dL) > 500 H* (65-110) mg/dL Random Glucose (70-110) mg/dL Hemoglobin A1c (4.2-6.5) % Calcium (8.4-10.5) mg/dL Phosphorus (2.5-4.5) mg/dL Magnesium (1.7-2.2) mg/dL Total Bilirubin (0.2-1.3) mg/dL AST (17-59) U/L ALT (7-56) U/L Alkaline Phosphatase (38-126) U/L Total Protein (5.8-8.3) g/dL Albumin (3.0-4.8) g/dL Globulin gm/dL Albumin/Globulin Ratio (1.1-1.8) Triglycerides (35-160) mg/dL Cholesterol (130-200) mg/dL LDL Cholesterol Direct (0-129) mg/dL HDL Cholesterol (29-60) mg/dL Free T4 (0.78-2.19) ng/dL TSH 3rd Generation (0.46-4.68) mIU/mL Venous Blood Potassium (3.6-5.2) mmol/L Urine Color (YELLOW) Urine Appearance (CLEAR) Urine pH (4.7-8.0) Ur Specific F[place] (1.005-1.035) Urine Protein (<30 mg/dL) mg/dL Urine Glucose (UA) (NEGATIVE) mg/dL Urine Ketones (NEGATIVE) mg/dL Urine Blood (NEGATIVE) Urine Nitrate (NEGATIVE) Urine Bilirubin (NEGATIVE) Urine Urobilinogen (<1 E.U./dL) E.U./dL Ur Leukocyte Esterase (NEGATIVE) Avni/uL B-Hydroxybutyrate (0.02-0.27) mM Laboratory Results - last 24 hr 12/18/17 12/18/17 12/18/17 21:18 21:20 21:20 WBC 8.0 RBC 4.81 Hgb 14.8 Hct 40.3 L MCV 83.8 MCH 30.8 MCHC 36.7 RDW 12.9 Plt Count 233 MPV 12.0 H Gran % 72.6 H Lymph % (Auto) 19.8 L [place] % (Auto) 5.9 Eos % (Auto) 1.3 L Baso % (Auto) 0.4 Gran # 5.82 Lymph # (Auto) 1.6 [place] # (Auto) 0.5 Eos # (Auto) 0.1 Baso # (Auto) 0.03 pO2 VBG pH VBG pCO2 VBG HCO3 VBG Total CO2 VBG O2 Sat (Calc) VBG Base Excess VBG Potassium Glucose Lactate FiO2 Sodium 131 L Potassium 3.7 Chloride 86 L Carbon Dioxide 26 Anion Gap 22 H BUN 17 Creatinine 1.3 Est GFR ( Amer) > 60 Est GFR (Non-Af Amer) 59 POC Glucose (mg/dL) > 500 H* Random Glucose 628 H* Hemoglobin A1c Calcium 9.1 Phosphorus Magnesium 1.8 Total Bilirubin 1.0 AST 64 H ALT 39 Alkaline Phosphatase 90 Total Protein 8.0 Albumin 4.5 Globulin 3.4 Albumin/Globulin Ratio 1.3 Triglycerides Cholesterol LDL Cholesterol Direct HDL Cholesterol Free T4 TSH 3rd Generation Venous Blood Potassium Urine Color Urine Appearance Urine pH Ur Specific F[place] Urine Protein Urine Glucose (UA) Urine Ketones Urine Blood Urine Nitrate Urine Bilirubin Urine Urobilinogen Ur Leukocyte Esterase B-Hydroxybutyrate 12/18/17 12/18/17 12/18/17 22:36 22:44 22:45 WBC RBC Hgb Hct MCV MCH MCHC RDW Plt Count MPV Gran % Lymph % (Auto) [place] % (Auto) Eos % (Auto) Baso % (Auto) Gran # Lymph # (Auto) [place] # (Auto) Eos # (Auto) Baso # (Auto) pO2 32 VBG pH 7.35 VBG pCO2 54.0 VBG HCO3 29.8 H VBG Total CO2 31.5 H VBG O2 Sat (Calc) 61.4 VBG Base Excess 2.9 H VBG Potassium 3.4 L Glucose 565 H* Lactate 1.4 FiO2 21.0 Sodium 135.0 Potassium Chloride 93.0 L Carbon Dioxide Anion Gap BUN Creatinine Est GFR ( Amer) Est GFR (Non-Af Amer) POC Glucose (mg/dL) > 500 H* Random Glucose Hemoglobin A1c Calcium Phosphorus Magnesium Total Bilirubin AST ALT Alkaline Phosphatase Total Protein Albumin Globulin Albumin/Globulin Ratio Triglycerides Cholesterol LDL Cholesterol Direct HDL Cholesterol Free T4 TSH 3rd Generation Venous Blood Potassium 3.4 L Urine Color Light yellow Urine Appearance Clear Urine pH 6.0 Ur Specific Fountain <= 1.005 Urine Protein Negative Urine Glucose (UA) >=1000 Urine Ketones 15 H Urine Blood Negative Urine Nitrate Negative Urine Bilirubin Negative Urine Urobilinogen 0.2 Ur Leukocyte Esterase Negative B-Hydroxybutyrate 12/19/17 12/19/17 12/19/17 00:32 03:49 04:00 WBC 8.8 RBC 4.49 Hgb 13.8 L Hct 37.4 L MCV 83.3 MCH 30.7 MCHC 36.9 RDW 13.0 Plt Count 228 MPV 11.4 H Gran % 57.8 Lymph % (Auto) 32.7 [place] % (Auto) 7.0 H Eos % (Auto) 1.9 Baso % (Auto) 0.6 Gran # 5.10 Lymph # (Auto) 2.9 [place] # (Auto) 0.6 Eos # (Auto) 0.2 Baso # (Auto) 0.05 pO2 VBG pH VBG pCO2 VBG HCO3 VBG Total CO2 VBG O2 Sat (Calc) VBG Base Excess VBG Potassium Glucose Lactate FiO2 Sodium Potassium Chloride Carbon Dioxide Anion Gap BUN Creatinine Est GFR ( Amer) Est GFR (Non-Af Amer) POC Glucose (mg/dL) 407 H* 306 H Random Glucose Hemoglobin A1c Calcium Phosphorus Magnesium Total Bilirubin AST ALT Alkaline Phosphatase Total Protein Albumin Globulin Albumin/Globulin Ratio Triglycerides Cholesterol LDL Cholesterol Direct HDL Cholesterol Free T4 TSH 3rd Generation Venous Blood Potassium Urine Color Urine Appearance Urine pH Ur Specific [place] Urine Protein Urine Glucose (UA) Urine Ketones Urine Blood Urine Nitrate Urine Bilirubin Urine Urobilinogen Ur Leukocyte Esterase B-Hydroxybutyrate 12/19/17 12/19/17 12/19/17 04:00 04:00 04:00 WBC RBC Hgb Hct MCV MCH MCHC RDW Plt Count MPV Gran % Lymph % (Auto) [place] % (Auto) Eos % (Auto) Baso % (Auto) Gran # Lymph # (Auto) [place] # (Auto) Eos # (Auto) Baso # (Auto) pO2 VBG pH VBG pCO2 VBG HCO3 VBG Total CO2 VBG O2 Sat (Calc) VBG Base Excess VBG Potassium Glucose Lactate FiO2 Sodium 133 Potassium 3.3 L Chloride 94 L Carbon Dioxide 25 Anion Gap 17 BUN 18 Creatinine 0.9 Est GFR ( Amer) > 60 Est GFR (Non-Af Amer) > 60 POC Glucose (mg/dL) Random Glucose 322 H* D Hemoglobin A1c 12.9 H Calcium 9.0 Phosphorus 3.0 Magnesium 2.0 Total Bilirubin 0.6 AST 50 ALT 32 Alkaline Phosphatase 80 Total Protein 7.2 Albumin 4.2 Globulin 3.0 Albumin/Globulin Ratio 1.4 Triglycerides 2275 H Cholesterol 225 H LDL Cholesterol Direct < 30 HDL Cholesterol 22 L Free T4 1.39 TSH 3rd Generation 1.70 Venous Blood Potassium Urine Color Urine Appearance Urine pH Ur Specific [place] Urine Protein Urine Glucose (UA) Urine Ketones Urine Blood Urine Nitrate Urine Bilirubin Urine Urobilinogen Ur Leukocyte Esterase B-Hydroxybutyrate 12/19/17 12/19/17 12/19/17 04:00 06:11 08:00 WBC RBC Hgb Hct MCV MCH MCHC RDW Plt Count MPV Gran % Lymph % (Auto) [place] % (Auto) Eos % (Auto) Baso % (Auto) Gran # Lymph # (Auto) [place] # (Auto) Eos # (Auto) Baso # (Auto) pO2 VBG pH VBG pCO2 VBG HCO3 VBG Total CO2 VBG O2 Sat (Calc) VBG Base Excess VBG Potassium Glucose Lactate FiO2 Sodium 134 Potassium 3.4 L Chloride 98 Carbon Dioxide 22 Anion Gap 17 BUN 15 Creatinine 0.7 L Est GFR ( Amer) > 60 Est GFR (Non-Af Amer) > 60 POC Glucose (mg/dL) 267 H Random Glucose 266 H Hemoglobin A1c Calcium 8.8 Phosphorus Magnesium Total Bilirubin AST ALT Alkaline Phosphatase Total Protein Albumin Globulin Albumin/Globulin Ratio Triglycerides Cholesterol LDL Cholesterol Direct HDL Cholesterol Free T4 TSH 3rd Generation Venous Blood Potassium Urine Color Urine Appearance Urine pH Ur Specific [place] Urine Protein Urine Glucose (UA) Urine Ketones Urine Blood Urine Nitrate Urine Bilirubin Urine Urobilinogen Ur Leukocyte Esterase B-Hydroxybutyrate 1.83 H 12/19/17 12/19/17 12/19/17 08:08 09:05 10:25 WBC RBC Hgb Hct MCV MCH MCHC RDW Plt Count MPV Gran % Lymph % (Auto) [place] % (Auto) Eos % (Auto) Baso % (Auto) Gran # Lymph # (Auto) [place] # (Auto) Eos # (Auto) Baso # (Auto) pO2 VBG pH VBG pCO2 VBG HCO3 VBG Total CO2 VBG O2 Sat (Calc) VBG Base Excess VBG Potassium Glucose Lactate FiO2 Sodium Potassium Chloride Carbon Dioxide Anion Gap BUN Creatinine Est GFR ( Amer) Est GFR (Non-Af Amer) POC Glucose (mg/dL) 262 H 256 H 250 H Random Glucose Hemoglobin A1c Calcium Phosphorus Magnesium Total Bilirubin AST ALT Alkaline Phosphatase Total Protein Albumin Globulin Albumin/Globulin Ratio Triglycerides Cholesterol LDL Cholesterol Direct HDL Cholesterol Free T4 TSH 3rd Generation Venous Blood Potassium Urine Color Urine Appearance Urine pH Ur Specific [place] Urine Protein Urine Glucose (UA) Urine Ketones Urine Blood Urine Nitrate Urine Bilirubin Urine Urobilinogen Ur Leukocyte Esterase B-Hydroxybutyrate 12/19/17 12/19/17 12/19/17 11:13 11:58 12:00 WBC RBC Hgb Hct MCV MCH MCHC RDW Plt Count MPV Gran % Lymph % (Auto) [place] % (Auto) Eos % (Auto) Baso % (Auto) Gran # Lymph # (Auto) [place] # (Auto) Eos # (Auto) Baso # (Auto) pO2 VBG pH VBG pCO2 VBG HCO3 VBG Total CO2 VBG O2 Sat (Calc) VBG Base Excess VBG Potassium Glucose Lactate FiO2 Sodium 136 Potassium 3.5 L Chloride 99 Carbon Dioxide 27 Anion Gap 14 BUN 14 Creatinine 0.8 Est GFR ( Amer) > 60 Est GFR (Non-Af Amer) > 60 POC Glucose (mg/dL) 239 H 196 H Random Glucose 235 H Hemoglobin A1c Calcium 8.7 Phosphorus Magnesium Total Bilirubin AST ALT Alkaline Phosphatase Total Protein Albumin Globulin Albumin/Globulin Ratio Triglycerides Cholesterol LDL Cholesterol Direct HDL Cholesterol Free T4 TSH 3rd Generation Venous Blood Potassium Urine Color Urine Appearance Urine pH Ur Specific [place] Urine Protein Urine Glucose (UA) Urine Ketones Urine Blood Urine Nitrate Urine Bilirubin Urine Urobilinogen Ur Leukocyte Esterase B-Hydroxybutyrate 12/19/17 12/19/17 13:48 14:53 WBC RBC Hgb Hct MCV MCH MCHC RDW Plt Count MPV Gran % Lymph % (Auto) [place] % (Auto) Eos % (Auto) Baso % (Auto) Gran # Lymph # (Auto) [place] # (Auto) Eos # (Auto) Baso # (Auto) pO2 VBG pH VBG pCO2 VBG HCO3 VBG Total CO2 VBG O2 Sat (Calc) VBG Base Excess VBG Potassium Glucose Lactate FiO2 Sodium Potassium Chloride Carbon Dioxide Anion Gap BUN Creatinine Est GFR ( Amer) Est GFR (Non-Af Amer) POC Glucose (mg/dL) 195 H 356 H Random Glucose Hemoglobin A1c Calcium Phosphorus Magnesium Total Bilirubin AST ALT Alkaline Phosphatase Total Protein Albumin Globulin Albumin/Globulin Ratio Triglycerides Cholesterol LDL Cholesterol Direct HDL Cholesterol Free T4 TSH 3rd Generation Venous Blood Potassium Urine Color Urine Appearance Urine pH Ur Specific [place] Urine Protein Urine Glucose (UA) Urine Ketones Urine Blood Urine Nitrate Urine Bilirubin Urine Urobilinogen Ur Leukocyte Esterase B-Hydroxybutyrate EKG/Cardiology Studies: Cardiology / EKG Studies 12/19/17 00:06 EKG [ELECTROCARDIOGRAM] Stat Comment: Reason For Exam: baseline EKG Critical Care Progress Note - Nutrition Nutrition: Nutrition Category Date Time Status Diabetic [Consistent Carbohydrate] [DIET] Diets 12/19/17 Lunch Ordered Addendum Addendum: 12/19/17 16:40 ICU Attending Addendum Patient seen and examined. Case reviewed on round with housestaff. Agree with resident note above with the following additions/exceptions: 47M recent dx of DM here with DKA/HHS after drinking large amount of orange juice Mild gap acidosis cont insulin drip change fluids to D51/2 when finger stick <250 transition of insulin IV to SQ once gap closed and bicarb normalized diabetic diet diabetic education cont ARB from home rest of care above Julien Ramos MD Measurement Supervisor
[2017-12-19 12:18] LABS: BLOOD UREA NITROGEN 14 mg/dL (7-21); CALCIUM 8.7 mg/dL (8.4-10.5); GFR NON-AFRICAN AMERICAN > 60
[2017-12-19] MEDS ORDERED: Insulin Human NPH 1 UNITS/0.01 ML SC STA (13:11)
[2017-12-19] MEDS ORDERED: Insulin Human NPH 1 UNITS/0.01 ML SC ONE (14:15)
[2017-12-19 14:43] VITALS: TEMP 98.7
[2017-12-19] MEDS ORDERED: Insulin Lispro (humaLOG) MEDIUM Coverage SC ONE (15:04)
[2017-12-19] MEDS ORDERED: Insulin Lispro 1 UNITS/0.01 ML SC SCH ×2 (16:30)
[2017-12-19 16:45] VITALS: BP 139/79; PULSE 94; RESP 37; O2SAT 93
[2017-12-19 16:52] LABS: BLOOD UREA NITROGEN 13 mg/dL (7-21); CALCIUM 9.1 mg/dL (8.4-10.5); GFR NON-AFRICAN AMERICAN > 60
--- NOTE | 2017-12-19 20:24 | CP.PCM.DIS ---
<Inocente Talavera - Last Filed: 12/19/17 21:06> Provider - Provider Date of Admission: 12/19/17 04:42 Attending physician: Sher Avery MD Time Spent in preparation of Discharge (in minutes): 40 Hospital Course - Lab Results Lab Results: Most Recent Lab Values WBC 8.8 10^3/ul (4.5-11.0) 12/19/17 04:00 RBC 4.49 10^6/uL (3.5-6.1) 12/19/17 04:00 Hgb 13.8 g/dL (14.0-18.0) L 12/19/17 04:00 Hct 37.4 % (42.0-52.0) L 12/19/17 04:00 MCV 83.3 fl (80.0-105.0) 12/19/17 04:00 MCH 30.7 pg (25.0-35.0) 12/19/17 04:00 MCHC 36.9 g/dl (31.0-37.0) 12/19/17 04:00 RDW 13.0 % (11.5-14.5) 12/19/17 04:00 Plt Count 228 10^3/uL (120.0-450.0) 12/19/17 04:00 MPV 11.4 fl (7.0-11.0) H 12/19/17 04:00 Gran % 57.8 % (50.0-68.0) 12/19/17 04:00 Lymph % (Auto) 32.7 % (22.0-35.0) 12/19/17 04:00 [place] % (Auto) 7.0 % (1.0-6.0) H 12/19/17 04:00 Eos % (Auto) 1.9 % (1.5-5.0) 12/19/17 04:00 Baso % (Auto) 0.6 % (0.0-3.0) 12/19/17 04:00 Gran # 5.10 (1.4-6.5) 12/19/17 04:00 Lymph # (Auto) 2.9 (1.2-3.4) 12/19/17 04:00 [place] # (Auto) 0.6 (0.1-0.6) 12/19/17 04:00 Eos # (Auto) 0.2 (0.0-0.7) 12/19/17 04:00 Baso # (Auto) 0.05 K/mm3 (0.0-2.0) 12/19/17 04:00 pO2 32 mm/Hg (30-55) 12/18/17 22:45 VBG pH 7.35 (7.32-7.43) 12/18/17 22:45 VBG pCO2 54.0 (40-60) 12/18/17 22:45 VBG HCO3 29.8 mmol/l (21-28) H 12/18/17 22:45 VBG Total CO2 31.5 mmol.L (22-28) H 12/18/17 22:45 VBG O2 Sat (Calc) 61.4 % (40-65) 12/18/17 22:45 VBG Base Excess 2.9 mmol/L (0.0-2.0) H 12/18/17 22:45 VBG Potassium 3.4 mmol/L (3.6-5.2) L 12/18/17 22:45 Sodium 135.0 mmol/L (132-148) 12/18/17 22:45 Chloride 93.0 mmol/L (98-107) L 12/18/17 22:45 Glucose 565 mg/dl (75-110) H* 12/18/17 22:45 Lactate 1.4 mmol/L (0.7-2.1) 12/18/17 22:45 FiO2 21.0 % 12/18/17 22:45 Sodium 136 mmol/L (132-148) 12/19/17 16:37 Potassium 3.9 mmol/L (3.6-5.0) 12/19/17 16:37 Chloride 103 mmol/L (98-107) 12/19/17 16:37 Carbon Dioxide 23 mmol/L (21-33) 12/19/17 16:37 Anion Gap 14 (10-20) 12/19/17 16:37 BUN 13 mg/dL (7-21) 12/19/17 16:37 Creatinine 0.8 mg/dl (0.8-1.5) 12/19/17 16:37 Est GFR ( Amer) > 60 12/19/17 16:37 Est GFR (Non-Af Amer) > 60 12/19/17 16:37 POC Glucose (mg/dL) 356 mg/dL (65-110) H 12/19/17 14:53 Random Glucose 297 mg/dL (70-110) H 12/19/17 16:37 Hemoglobin A1c 12.9 % (4.2-6.5) H 12/19/17 04:00 Calcium 9.1 mg/dL (8.4-10.5) 12/19/17 16:37 Phosphorus 3.0 mg/dL (2.5-4.5) 12/19/17 04:00 Magnesium 2.0 mg/dL (1.7-2.2) 12/19/17 04:00 Total Bilirubin 0.6 mg/dL (0.2-1.3) 12/19/17 04:00 AST 50 U/L (17-59) 12/19/17 04:00 ALT 32 U/L (7-56) 12/19/17 04:00 Alkaline Phosphatase 80 U/L (38-126) 12/19/17 04:00 Total Protein 7.2 g/dL (5.8-8.3) 12/19/17 04:00 Albumin 4.2 g/dL (3.0-4.8) 12/19/17 04:00 Globulin 3.0 gm/dL 12/19/17 04:00 Albumin/Globulin Ratio 1.4 (1.1-1.8) 12/19/17 04:00 Triglycerides 2275 mg/dL (35-160) H 12/19/17 04:00 Cholesterol 225 mg/dL (130-200) H 12/19/17 04:00 LDL Cholesterol Direct < 30 mg/dL (0-129) 12/19/17 04:00 HDL Cholesterol 22 mg/dL (29-60) L 12/19/17 04:00 Free T4 1.39 ng/dL (0.78-2.19) 12/19/17 04:00 TSH 3rd Generation 1.70 mIU/mL (0.46-4.68) 12/19/17 04:00 Venous Blood Potassium 3.4 mmol/L (3.6-5.2) L 12/18/17 22:45 Urine Color Light yellow (YELLOW) 12/18/17 22:36 Urine Appearance Clear (CLEAR) 12/18/17 22:36 Urine pH 6.0 (4.7-8.0) 12/18/17 22:36 Ur Specific [place] <= 1.005 (1.005-1.035) 12/18/17 22:36 Urine Protein Negative mg/dL (<30 mg/dL) 12/18/17 22:36 Urine Glucose (UA) >=1000 mg/dL (NEGATIVE) 12/18/17 22:36 Urine Ketones 15 mg/dL (NEGATIVE) H 12/18/17 22:36 Urine Blood Negative (NEGATIVE) 12/18/17 22:36 Urine Nitrate Negative (NEGATIVE) 12/18/17:36 Urine Bilirubin Negative (NEGATIVE) 12/18/17:36 Urine Urobilinogen 0.2 E.U./dL (<1 E.U./dL) 12/18/17 22:36 Ur Leukocyte Esterase Negative Avni/uL (NEGATIVE) 12/18/17:36 B-Hydroxybutyrate 1.83 mM (0.02-0.27) H 12/19/17 04:00 - Hospital Course Hospital Course: HPI: Mr. Moore is a 47 year old male with a past medical history of bipolar disorder, hypertension, uncontrolled diabetes, presenting with blurry vision for 3 days. Patient reported gradual worsening of vision in both eyes, denied any loss of visual field, color change, light sensitivity, floaters/spotters. He reports that he stopped taking his diabetes medications (insulin and oral agent) because he was "just frustrated with taking it". He states he was recently diagnosed 6 months ago by his PMD (Dr. Randolph) and was trying multiple different injectable Rx. He describes his most current regimen as a once nightly injection and a oral agent, unsure of names + doses. He denies any issue with purchasing medications or accessibility. He did not report how long he has been off of his anti- hyperglycemic rx; however, he did report associated polydypsia, polyuria. He does report he is compliant with his other medications. Upon ROS, he denies suicidal ideation, homicidal ideation, auditory/visual hallucination, manic episodes or depressed mood. No abdominal pain, nausea/vomiting/diarrhea/constipation, fevers/chills, dysuria. Remainder of 12 system ROS is negative at this time. On hospital admission, patient's glucose level was 628 with an anion gap of 19. Anion gap status-post 18u insulin bolus and IV fluid was 18. UA was positive for ketonuria and glucosuria. Insulin drip was started per DKA algorithm, IVF started @ 100cc/hr. Potassium was repleted with 60 meq PO and monitored, with repletion as necessary. Patient was started on home losartan and risperdal, with Psychiatry consulted for further medication recommendations, as risperdal has known hyperglycemic effects. The patient expressed desire to sign out against medical advice. This decision was made with informed refusal. The patient was told that continued hospital course is necessary. Explanations of the reasons why were discussed. The risks of leaving were explained to the patient and include, but are not limited to, worsening of known or currently unknown conditions, end-organ damage, altered mental status, lethargy, coma, and . The patient has the capacity to make this informed decision and understands my explanation of the current medical problem and risks of leaving. The patient voluntarily accepts these risks and signed an AMA form documenting our conversation. The patient was given the opportunity to asks questions and reconsider. The patient was encouraged to return to the ED at any time for further care. The patient was given information to read on using insulin pens and syringes and vials. He was given information to read on prevention of hypoglycemia. Information given to patient on sites of injection. Importance of never skipping a meal or snack discussed. Patient given information to read on staying well with diabetes. The following is a summary of hospital course. For further detail, please read patient's EMR. - Date & Time of H&P Date of H&P: 12/19/17 Time of H&P: 20:23 Discharge Exam - Head Exam Head Exam: ATRAUMATIC, NORMAL INSPECTION, NORMOCEPHALIC - Eye Exam Eye Exam: EOMI, Normal appearance Pupil Exam: NORMAL ACCOMODATION - ENT Exam ENT Exam: Mucous Membranes Moist, Normal Exam - Neck Exam Neck exam: Full Rom - Respiratory Exam Respiratory Exam: Clear to PA & Lateral, NORMAL BREATHING PATTERN, UNREMARKABLE. absent: Rales, Rhonchi, Wheezes, Respiratory Distress - Cardiovascular Exam Cardiovascular Exam: REGULAR RHYTHM, +S1, +S2 - GI/Abdominal Exam GI & Abdominal Exam: Normal Bowel Sounds, Soft, Unremarkable. absent: Distended, Firm, Guarding, Rebound, Rigid, Tenderness - Extremities Exam Extremities exam: full ROM, normal capillary refill, normal inspection, pedal p ulses present - Back Exam Back exam: NORMAL INSPECTION - Neurological Exam Neurological exam: Alert, CN II-XII Intact, Normal Gait, Oriented x3, Reflexes Normal - Psychiatric Exam Psychiatric exam: Normal Affect, Normal Mood - Skin Skin Exam: Dry, Intact, Normal Color, Warm Discharge Plan - Follow Up Plan Condition: STABLE Disposition: AGAINST MEDICAL ADVICE Additional Instructions: The patient expressed desire to sign out against medical advice. This decision was made with informed refusal. The patient was told that continued hospital course is necessary. Explanations of the reasons why were discussed. The risks of leaving were explained to the patient and include, but are not limited to, worsening of known or currently unknown conditions, end-organ damage, altered mental status, lethargy, coma, and . The patient has the capacity to make this informed decision and understands my explanation of the current medical problem and risks of leaving. The patient voluntarily accepts these risks and signed an AMA form documenting our conversation. The patient was given the opportunity to asks questions and reconsider. The patient was encouraged to return to the ED at any time for further care. The patient was given information to read on using insulin pens and syringes and vials. He was given information to read on prevention of hypoglycemia. Information given to patient on sites of injection. Importance of never skipping a meal or snack discussed. Patient given information to read on staying well wit h diabetes. <Sher Avery - Last Filed: 12/20/17 08:48> Provider - Provider Date of Admission: 12/19/17 04:42 Attending physician: Sher Avery MD [facility] Course - Lab Results Lab Results: Most Recent Lab Values WBC 8.8 10^3/ul (4.5-11.0) 12/19/17 04:00 RBC 4.49 10^6/uL (3.5-6.1) 12/19/17 04:00 Hgb 13.8 g/dL (14.0-18.0) L 12/19/17 04:00 Hct 37.4 % (42.0-52.0) L 12/19/17 04:00 MCV 83.3 fl (80.0-105.0) 12/19/17 04:00 MCH 30.7 pg (25.0-35.0) 12/19/17 04:00 MCHC 36.9 g/dl (31.0-37.0) 12/19/17 04:00 RDW 13.0 % (11.5-14.5) 12/19/17 04:00 Plt Count 228 10^3/uL (120.0-450.0) 12/19/17 04:00 MPV 11.4 fl (7.0-11.0) H 12/19/17 04:00 Gran % 57.8 % (50.0-68.0) 12/19/17 04:00 Lymph % (Auto) 32.7 % (22.0-35.0) 12/19/17 04:00 [place] % (Auto) 7.0 % (1.0-6.0) H 12/19/17 04:00 Eos % (Auto) 1.9 % (1.5-5.0) 12/19/17 04:00 Baso % (Auto) 0.6 % (0.0-3.0) 12/19/17 04:00 Gran # 5.10 (1.4-6.5) 12/19/17 04:00 Lymph # (Auto) 2.9 (1.2-3.4) 12/19/17 04:00 [place] # (Auto) 0.6 (0.1-0.6) 12/19/17 04:00 Eos # (Auto) 0.2 (0.0-0.7) 12/19/17 04:00 Baso # (Auto) 0.05 K/mm3 (0.0-2.0) 12/19/17 04:00 pO2 32 mm/Hg (30-55) 12/18/17 22:45 VBG pH 7.35 (7.32-7.43) 12/18/17 22:45 VBG pCO2 54.0 (40-60) 12/18/17 22:45 VBG HCO3 29.8 mmol/l (21-28) H 12/18/17 22:45 VBG Total CO2 31.5 mmol.L (22-28) H 12/18/17 22:45 VBG O2 Sat (Calc) 61.4 % (40-65) 12/18/17 22:45 VBG Base Excess 2.9 mmol/L (0.0-2.0) H 12/18/17 22:45 VBG Potassium 3.4 mmol/L (3.6-5.2) L 12/18/17 22:45 Sodium 135.0 mmol/L (132-148) 12/18/17 22:45 Chloride 93.0 mmol/L (98-107) L 12/18/17 22:45 Glucose 565 mg/dl (75-110) H* 12/18/17 22:45 Lactate 1.4 mmol/L (0.7-2.1) 12/18/17 22:45 FiO2 21.0 % 12/18/17 22:45 Sodium 136 mmol/L (132-148) 12/19/17 16:37 Potassium 3.9 mmol/L (3.6-5.0) 12/19/17 16:37 Chloride 103 mmol/L (98-107) 12/19/17 16:37 Carbon Dioxide 23 mmol/L (21-33) 12/19/17 16:37 Anion Gap 14 (10-20) 12/19/17 16:37 BUN 13 mg/dL (7-21) 12/19/17 16:37 Creatinine 0.8 mg/dl (0.8-1.5) 12/19/17 16:37 Est GFR ( Amer) > 60 12/19/17 16:37 Est GFR (Non-Af Amer) > 60 12/19/17 16:37 POC Glucose (mg/dL) 285 mg/dL (65-110) H 12/19/17 16:17 Random Glucose 297 mg/dL (70-110) H 12/19/17 16:37 Hemoglobin A1c 12.9 % (4.2-6.5) H 12/19/17 04:00 Calcium 9.1 mg/dL (8.4-10.5) 12/19/17 16:37 Phosphorus 3.0 mg/dL (2.5-4.5) 12/19/17 04:00 Magnesium 2.0 mg/dL (1.7-2.2) 12/19/17 04:00 Total Bilirubin 0.6 mg/dL (0.2-1.3) 12/19/17 04:00 AST 50 U/L (17-59) 12/19/17 04:00 ALT 32 U/L (7-56) 12/19/17 04:00 Alkaline Phosphatase 80 U/L (38-126) 12/19/17 04:00 Total Protein 7.2 g/dL (5.8-8.3) 12/19/17 04:00 Albumin 4.2 g/dL (3.0-4.8) 12/19/17 04:00 Globulin 3.0 gm/dL 12/19/17 04:00 Albumin/Globulin Ratio 1.4 (1.1-1.8) 12/19/17 04:00 Triglycerides 2275 mg/dL (35-160) H 12/19/17 04:00 Cholesterol 225 mg/dL (130-200) H 12/19/17 04:00 LDL Cholesterol Direct < 30 mg/dL (0-129) 12/19/17 04:00 HDL Cholesterol 22 mg/dL (29-60) L 12/19/17 04:00 Free T4 1.39 ng/dL (0.78-2.19) 12/19/17 04:00 TSH 3rd Generation 1.70 mIU/mL (0.46-4.68) 12/19/17 04:00 Venous Blood Potassium 3.4 mmol/L (3.6-5.2) L 12/18/17 22:45 Urine Color Light yellow (YELLOW) 12/18/17 22:36 Urine Appearance Clear (CLEAR) 12/18/17 22:36 Urine pH 6.0 (4.7-8.0) 12/18/17 22:36 Ur Specific [place] <= 1.005 (1.005-1.035) 12/18/17 22:36 Urine Protein Negative mg/dL (<30 mg/dL) 12/18/17 22:36 Urine Glucose (UA) >=1000 mg/dL (NEGATIVE) 12/18/17 22:36 Urine Ketones 15 mg/dL (NEGATIVE) H 12/18/17 22:36 Urine Blood Negative (NEGATIVE) 12/18/17 22:36 Urine Nitrate Negative (NEGATIVE) 12/18/17 22:36 Urine Bilirubin Negative (NEGATIVE) 12/18/17 22:36 Urine Urobilinogen 0.2 E.U./dL (<1 E.U./dL) 12/18/17 22:36 Ur Leukocyte Esterase Negative Avni/uL (NEGATIVE) 12/18/17 22:36 B-Hydroxybutyrate 1.83 mM (0.02-0.27) H 12/19/17 04:00 Attending/Attestation - Attestation I have personally seen and examined this patient.: Yes I have fully participated in the care of the patient.: Yes I have reviewed all pertinent clinical information, including history, physical exam and plan: Yes Notes (Text): 12/19/17 47 year old male with past medical history of hypertension, diabetes and bipolar disorder who presented with complaint of blurry vision. He was found to have DKA and elevated triglycerides and transferred to ICU. He was started on insulin drip. His fingersticks and visual complaints improved. He was seen by psychiatrist today regarding home medication. He was also seen by the coding educator. Patient later in the afternoon signed out against medical advise. He was explained the risks of signing out which he acknowledged. Sher Avery MD Hospitalist.
--- NOTE | 2017-12-20 09:21 | CON ---
DATE: 12/19/2017 SUBJECTIVE: The patient is a 47-year-old male with reported history of bipolar disorder. The patient also has diabetes, multiple medical issues. The patient was noncompliant with the insulin regimen because he got tired of it. As a result, the patient's vision was affected. The patient brought himself to the hospital for blurry vision in both eyes. The patient was admitted to ICU. Psych consult was called for evaluation of medication regimen. The patient was seen and examined today in ICU. The patient presented very well from the psychiatric standpoint, has good insight into his bipolar disorder as well as medical issues. The patient reported that his vision right now is getting better. The patient is sincerely regretful and remorseful about being noncompliant with the medication and drinks orange juice. The patient reports that from now on he learned that he needs to continue all of the medications. In regards of the psychiatric history, the patient was officially diagnosed with bipolar disorder in 1996. The patient was in [facility] and was transferred to [facility]. The patient was tried on multiple medications including Risperdal, as well as Geodon, as well as Zyprexa. The patient did not tolerate medications well. On Zyprexa, the patient got about like 30 pounds gaining weight within 2 weeks. Geodon, the patient did not tolerate well. The only medication the patient tolerates well and willing to continue is Risperdal. The patient said that at the present moment, he is not depressed. The patient denies that he has any thoughts of harming himself or others. The patient denies any psychotic symptoms. The patient reported that he has future oriented plans. The patient reports that he has psychiatrist nurse practitioner at [facility], Benedict Davis. The patient has appointment every 3 months, which gives this report writer sense that the patient is doing very well. The patient reports that he has following up appointment in 01/2018, but does not remember the exact date. The patient presented to be pleasant, cooperative, and polite. PHYSICAL EXAMINATION: VITAL SIGNS: Reviewed. The patient is tachycardic, respirations 21, oxygen saturation is 93%. MEDICATIONS: Reviewed. The patient is on Lipitor, dextrose, Pepcid, insulin, Cozaar, potassium chloride, and Risperdal 3 mg at the nighttime, which will be continued. MENTAL STATUS EXAM: The patient was alert and oriented, pleasant, cooperative, socially appropriate, fair eye contact. Speech was normal rate, tone, quality, and quantity. Mood described as good. Affect was reactive, mood congruent. Thought process was coherent and goal directed. Thought content, the patient denies visual, auditory, tactile hallucinations. Denies paranoid ideation. The patient denies thoughts of harming himself or others. Denies intent or plan. The patient does not appear to be psychotic at present moment. Last time, psychotic symptoms were in 1996. Insight and judgment seems to be fair. Impulses are well controlled. IMPRESSION: As per history of bipolar disorder. The patient was admitted on the medical side for diabetes ketoacidosis. PLAN: Continue current management. Continue current medication. Risperdal should be continued at 3 mg at the nighttime. The patient has followup appointment with a nurse practitioner at [facility]. The patient might benefit from diabetes education and I am sure that it was provided already. Discussed with the medical team. There is no acute issues from the psychiatric standpoint. The patient posed no imminent danger to self or others. Should you have any questions, give me a call back. This report writer will sign off. Thank you very much for letting me participate in the care of your patient. Padma Pelaez MD
== END 2017-12-19 17:15 | disposition left against medical advice (07) ==
LOC: ED 20:13 → ERH 23:43 → 5RSO 12-19 02:13 → INTOOBSV 12-19 04:42 → OBSVTOIN 12-19 04:42 → ICU 12-19 05:55
PROVIDERS: ADMIT Hospitalist; ATTEND Internal Medicine
DX: E11.10 Type 2 diabetes mellitus with ketoacidosis without coma (principal); E87.1 Hypo-osmolality and hyponatremia; E87.6 Hypokalemia; E78.1 Pure hyperglyceridemia; F31.9 Bipolar disorder, unspecified; I10 Essential (primary) hypertension; Z79.4 Long term (current) use of insulin; Z91.14 Patient's other noncompliance with medication regimen; R40.2412 Glasgow coma scale score 13-15, at arrival to emergency department
CPT/HCPCS: 36415; 80053; 80061; 81003; 82009; 82803; 82948; 83036; 83735; 84100; 84439; 84443; 85025; 87081; 87086; 96360; 96372; 99285; G0378; J1644; J3480; J7030